=== PATIENT | female | born 1990 | race Caucasian/White ===

== ENCOUNTER → 2017-11-20 | Outpatient (CLI) | payer OTHER ==
[2017-11-20 12:56] LABS: HEMOGLOBIN A1C 6.3 % (4.5-5.6)
[2017-11-20 13:04] LABS: ALBUMIN 3.6 gm/dl (3.4-5.0); ALT/SGPT 19 U/L (12-78); AST/SGOT 12 U/L (15-37); BLOOD UREA NITROGEN 16 mg/dl (7-18); CALCIUM 8.8 mg/dl (8.5-10.1); CARBON DIOXIDE 28 mmol/L (21-32); CREATININE 0.72 mg/dl (0.60-1.20); GLUCOSE 70 mg/dl (70-99); POTASSIUM 3.9 mmol/L (3.5-5.1); SODIUM 136 mmol/L (136-145)
[2017-11-20 13:17] LABS: ALKALINE PHOSPHATASE 53 U/L (45-117); CHOLESTEROL 170 mg/dl (0-200); LDL CHOLESTEROL CALCULATED 91 mg/dl; TOTAL PROTEIN 7.5 gm/dl (6.4-8.2)
[2017-11-20 13:47] LABS: CREATININE RANDOM URINE 92.3 mg/dl
== END | disposition home or self-care (01) ==
LOC: C.LAB 09:46
PROVIDERS: ATTEND Physician Assistant
DX: E10.9 Type 1 diabetes mellitus without complications (principal)

== ENCOUNTER 2021-08-23 07:30 | Inpatient (IN) ==
[2021-08-23] MEDS ORDERED: OXYTOCIN 30 UNITS/500 ML BAG IV PRN ×2 (07:52)
--- NOTE | 2021-08-23 08:01 | History & Physical Report ---
Date of Service August 23, 2021 Assessment & Plan (1) Encounter for supervision of normal intrauterine in primigravida, antepartum: Plan: 30yo G1 at 39.0 weeks GA. Presents for IOL for Type I DM. 1. Fetus: Cat1 2. Labor: Tejeda/pitocin 3. Vitals WNL 4. Type 1 DM: Has insulin pump and will try to maintain management with pump. Will transition to insulin drip prn. (2) Type 1 diabetes mellitus affecting , antepartum: (3) Type 1 diabetes mellitus: (4) Hypothyroidism: Admission and Anticipated Discharge Date Admission Date: August 23, 2021 History of Present Illness Primary Care Provider: Cayla Perry MD 30yo G1 at 39.0 weeks GA. Presents for IOL for Type I DM. Denies labor symptoms. 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 *Fob negative Type 1 DM DM Protocol *Baby ASA dailly, start 12-28wks, continue until del *Ophthalmology consult - done 11/2020 *Dietary consult - done 01/2021 *Q monthly urine cultures * Echo 22-24wks (04/30/21 [facility]) - WNL KBB *Twice weekly NST's @32 or 34wks *Serial Growth US starting 28wks *Baseline 24hr Urine and Q trimester *EKG (Cardio [id number]) OB Labs: Blood Type O Negative 01/24/21 Antibody Screen NEGATIVE 06/13/21 Hemoglobin 11.1 g/dL (12.0-16.0) L 06/13/21 Hematocrit 34.6 % (37-47) L 06/13/21 Mean Corpuscular Volume 88.5 fL (80-100) 01/24/21 Platelet Count 168 K/uL (130-400) 01/24/21 Rubella IgG Antibody Immune (Immune) 01/24/21 Rapid Plasma Reagin Nonreactive (Nonreactive) 01/24/21 Hepatitis B Surface Antigen Neg (Neg) 01/24/21 HIV (1&2) Ab and P24 Ag, 4th Gener Neg (Neg) 01/24/21 OB Optional Labs: Chlamydia trachomatis RNA NOT DETECTED (NOT DETECTED) 01/24/21 Neisseria gonorrhoeae RNA NOT DETECTED (NOT DETECTED) 01/24/21 Thyroid Stimulating Hormone (TSH) 1.280 uIu/ml (0.300-4.500) Allergies Allergy/AdvReac Type Severity Reaction Status Date / Time No Known Allergies Allergy Unverified 08/23/21 09:44 Home Medications Medication Instructions Recorded Confirmed Type blood sugar diagnostic (Contour #10 ea 03/15/19 08/22/21 History Next Test Strips) glucagon HCl 1 mg/mL solution for 1 mg IM UD PRN #2 ea 03/19/20 08/23/21 Rx injection insulin glargine 100 unit/mL 30 unit SUBCUT DAILY #10 ml 03/19/20 08/23/21 Rx subcutaneous solution (Lantus U-100 Insulin) aspirin 81 mg tablet,delayed 81 mg PO DAILY 03/13/21 08/23/21 History release (Adult Low Dose Aspirin) docosahexaenoic acid [ DHA] PO DAILY 03/13/21 08/22/21 History insulin lispro 100 unit/mL 80 unit CONTINUOUS SUBCUTANEOUS 05/21/21 08/23/21 Rx subcutaneous solution (Humalog INFUSION DAILY #20 ml U-100 Insulin) levothyroxine 112 mcg tablet 112 mcg PO .COMPLEX #108 tab 06/14/21 08/23/21 Rx Patient History Medical History History of chicken pox Hypothyroidism Type 1 diabetes mellitus Surgical History S/P wisdom tooth extraction Family History Mother Hypertension Hyperlipidemia Type 2 diabetes mellitus Sleep apnea Obesity Hypothyroidism Father Hypertension Hyperlipidemia GERD (gastroesophageal reflux disease) Grandmother (Maternal) Hypothyroidism Heart failure Sister Type 1 diabetes mellitus Samreen's thyroiditis Grandfather (Maternal) Myocardial infarction Cardiac disorder Grandmother (Paternal) Diabetes Cardiac disorder Grandfather (Paternal) Cardiac disorder Myocardial infarction Sister Hypothyroidism Brother Hypertension Denies family history of Ovarian cancer Prostate cancer Breast cancer Colorectal cancer Social History (Updated 03/25/21 @ 07:59 by Gisel Wolff LPN) Smoking Status: Never smoker Second Hand Exposure: No; Hx Alcohol Use: No Hx Substance Use: No Preferred Language: Iranian Communication Ability: Effective Visual Impairment: No Limitations Hearing Ability: Hard of Hearing [employer] Required: No Beliefs That Will Affect Care: None marital status: marital status details: Waldo Weller (30) [phone] Current Living Situation: Spouse Current Living Situation Comment: lives with spouse and 2 cats. Spouse changing litter current occupational status: employed current occupation: pharamacist Other Information That Helps Us Care for You: No Feels Safe at Home: Yes Safety Concerns: Feels Safe At This Time Childhood Exposure to Second-Hand Smoke: No caffeine: Yes during the past year weight has: remained stable Dental Care, Regularly: Yes Physical Activity Frequency: Does not Exercise Seatbelt Use: always Sunscreen Use: Yes Assistive Devices: None Physical Exam Genitourinary: Manual OB Exam: + cervical dilation 1 cm, + cervical effacement (Thick) and + station high OB Exam Monitor Tracing: + external FHT monitor used, + external uterine monitor used, + category I and + normal FHT variability; no early decelerations present, no late decelerations present and no variable decelerations Results & Data ([facility]) Vital Signs (Past 12 Hours) Vital Signs Pulse BP 08/23/21 07:37 83 133/79 Coding Level of Care Code None Diagnoses Encounter for supervision of normal intrauterine in primigravida, antepartum Z34.00 Type 1 diabetes mellitus affecting , antepartum O24.019 Type 1 diabetes mellitus E10.9 Hypothyroidism E03.9
[2021-08-23 09:07] LABS: Hemoglobin 9.5 g/dL (12.0-16.0); Mean Corpuscular Hemoglobin 28.7 pg (25-34); Mean Corpuscular Hgb Conc 31.7 g/dL (32-36); Mean Corpuscular Volume 90.6 fL (80-100); Platelet Count 87 K/uL (130-400); Platelet Estimate Decreased (Normal); RDW Coefficient of Variation 14.2 % (11.5-14.5); RDW Standard Deviation 46.9 fL (36.4-46.3); Red Blood Count 3.31 M/uL (4.2-5.4); White Blood Count 8.07 K/uL (4.8-10.8)
[2021-08-23] MEDS: LACTATED RINGER'S 1,000 ML IV PRN ×2 (13:38→19:25)
[2021-08-23] MEDS ORDERED: SODIUM CHLORIDE 0.9% INJ 10 ML VIAL ONE (19:20)
[2021-08-23] MEDS ORDERED: ePHEDrine sulfate 50 MG/ML AMP ONE (19:20)
[2021-08-23] MEDS ORDERED: fentaNYL citrate 100 MCG/2 ML VIAL ONE (19:20)
[2021-08-23] MEDS ORDERED: BUPIVACAINE 0.25% 30 ML VIAL ONE (19:20)
[2021-08-23] MEDS ORDERED: fentaNYL 2MCG/ML ROPIVACAINE 1.25MG/ML 100 ML BAG EPI ONE (19:21)
[2021-08-23] MEDS: CALCIUM CARBONATE 500 MG CHEWABLE TAB PO PRN ×2 (19:23→21:45)
[2021-08-23] MEDS ORDERED: ePHEDrine sulfate 50 MG/ML AMP IV PRN (19:56)
[2021-08-23] MEDS ORDERED: fentaNYL 2MCG/ML ROPIVACAINE 1.25MG/ML 100 ML BAG EPI PRN (19:56)
[2021-08-23] MEDS ORDERED: NALBUPHINE HCL INJ 10 MG/ML AMP IV PRN (19:56)
[2021-08-23] MEDS ORDERED: diphenhydrAMINE 50 MG/ML VIAL IV PRN (19:56)
[2021-08-23] MEDS ORDERED: NALOXONE HCL 0.4 MG/1 ML VIAL/CARP IV PRN (19:56)
[2021-08-23] MEDS ORDERED: ONDANSETRON INJ 2 MG/ML 2 ML VIAL IV PRN (19:56)
[2021-08-23] MEDS ORDERED: NALOXONE HCL 1 MG in SODIUM CHLORIDE 0.9% 1000ML 1,000 ML IV PRN (19:56)
--- NOTE | 2021-08-23 20:03 | Anesthesiology Consultation ---
Date of Service August 23, 2021 Assessment & Plan Chart Review Chart Review: Acceptable Risk for Surgery and Patient NOT seen in Pre Admission Testing Consults Requested none ASA ASA3 Proposed Anesthesia Anesthesia Type: Labor Epidural Risk / Benefits Reviewed With: PT / POA / Parent / Guardian, Accepts Plan and Informed Consent Obtained History Height/Weight Height: 5 ft 7 in Weight: 95.254 kg Allergies Allergy/AdvReac Type Severity Reaction Status Date / Time No Known Allergies Allergy Unverified 08/23/21 09:44 Medications Home Medications Medication Instructions Recorded Confirmed Last Taken blood sugar diagnostic (Contour #10 ea 03/15/19 08/22/21 Unknown Next Test Strips) glucagon HCl 1 mg/mL solution for 1 mg IM UD PRN #2 ea 03/19/20 08/23/21 Unknown injection insulin glargine 100 unit/mL 30 unit SUBCUT DAILY #10 ml 03/19/20 08/23/21 Unknown subcutaneous solution (Lantus U-100 Insulin) aspirin 81 mg tablet,delayed 81 mg PO DAILY 03/13/21 08/23/21 Unknown release (Adult Low Dose Aspirin) docosahexaenoic acid [ DHA] PO DAILY 03/13/21 08/22/21 Unknown insulin lispro 100 unit/mL 80 unit CONTINUOUS SUBCUTANEOUS 05/21/21 08/23/21 Unknown subcutaneous solution (Humalog INFUSION DAILY #20 ml U-100 Insulin) levothyroxine 112 mcg tablet 112 mcg PO .COMPLEX #108 tab 06/14/21 08/23/21 08/23/21 07:00 Active Medications Generic Name Dose Route Start Last Admin Trade Name Freq PRN Reason Stop Dose Admin Calcium Carbonate 500 mg 08/23/21 19:11 08/23/21 19:23 Calcium Carbonate 500 Mg Chewable Tab PO 09/22/21 19:10 500 mg Q4 PRN Administration Indigestion Oxytocin 30 units in 500 mls @ 10 mls/hr 08/23/21 07:52 08/23/21 19:00 Pitocin IV 08/25/21 07:51 0.6 units/hr .Q24H PRN 10 mls/hr Labor Induction/Augmentation Titration Protocol 0.6 UNITS/HR Lactated Ringer's 1,000 mls @ 125 mls/hr 08/23/21 07:52 08/23/21 19:25 Lr IV 08/25/21 07:51 125 mls/hr .Q8H PRN Administration L&D Protocol Protocol NPO Date Last Intake of Fluids: 08/23/21 Time Last Intake of Fluids: 18:00 Date Last Intake of Solids: 08/23/21 Time Last Intake of Solids: 18:00 Past Medical History Medical History History of chicken pox Hypothyroidism Type 1 diabetes mellitus Exercise / Class Metabolic Activity II 4-5 Yardwork/Stairs/Walk up hill Past Family History Family History Mother Hypertension Hyperlipidemia Type 2 diabetes mellitus Sleep apnea Obesity Hypothyroidism Father Hypertension Hyperlipidemia GERD (gastroesophageal reflux disease) Grandmother (Maternal) Hypothyroidism Heart failure Sister Type 1 diabetes mellitus Samreen's thyroiditis Grandfather (Maternal) Myocardial infarction Cardiac disorder Grandmother (Paternal) Diabetes Cardiac disorder Grandfather (Paternal) Cardiac disorder Myocardial infarction Sister Hypothyroidism Brother Hypertension Denies family history of Ovarian cancer Prostate cancer Breast cancer Colorectal cancer Past Surgical History Surgical History S/P wisdom tooth extraction Past Anesthesia History No Hx of Anesthesia Complications and No Family Hx of Anesthesia Complications History of PONV No Hx of PONV and No Hx of Motion Sickness Social History Smoking Status: Never smoker Hx Alcohol Use: No Hx Substance Use: No substance use type: does not use Review of Systems no chest pain or sob Physical Exam Vital Signs Last Vital Signs Temp 36.9 C 08/23/21 19:00 Pulse 77 08/23/21 19:55 Resp 18 08/23/21 19:00 BP 142/84 H 08/23/21 19:02 Pulse Ox 98 08/23/21 19:55 ENMT Mouth: no TMJ abnormality Thyromental Distance: > or= 3.5 Finger Breadths Mallampati Class: II Neck normal visual inspection Respiratory normal respiratory effort Auscultation: lungs clear to auscultation bilaterally Cardiovascular Rate/Rhythm: regular rate and regular rhythm Musculoskeletal Spine: normal cervical ROM Neurologic moves all extremities Psychiatric Orientation: alert and oriented x 3 Testing Laboratory Results 08/23/21 08:26 08/23/21 08/23/21 08/23/21 18:59 16:58 15:11 POC Glucose 103 H 80 85 08/23/21 08/23/21 08/23/21 13:01 11:01 08:50 POC Glucose 68 L* 63 L* 116 H
[2021-08-23] MEDS ORDERED: FAMOTIDINE 20 MG in SYRINGE 3 ML IV ONE (23:45)
--- NOTE | 2021-08-24 01:20 | Labor Progress Brief Note ---
Date of Service August 24, 2021 Patient's induction was delayed today due to busyness and staff issues. Pitocin has been running the patient has received an epidural she is doing well at this stage she is now 4 cm baby's position is fairly high initially attempted to perform artificial rupture of membranes however it was high enough that I decided this was unwise at this moment we will wait to the head descends further Assessment & Plan Admission and Anticipated Discharge Date Admission Date: August 23, 2021 Results & Data ([facility]) Vital Signs (Past 12 Hours) Vital Signs Temp Pulse Resp BP Pulse Ox 08/24/21 01:15 87 97 08/24/21 01:10 104 H 98 08/24/21 01:05 82 97 08/24/21 01:00 79 98 08/24/21 00:58 84 152/81 H 08/24/21 00:55 89 96 08/24/21 00:50 81 97 08/24/21 00:45 81 97 08/24/21 00:43 78 137/73 08/24/21 00:40 78 96 08/24/21 00:35 83 97 08/24/21 00:30 80 97 08/24/21 00:28 78 141/71 H 08/24/21 00:25 75 97 08/24/21 00:20 77 97 08/24/21 00:15 84 97 08/24/21 00:13 83 142/77 H 08/24/21 00:10 82 97 08/24/21 00:05 79 97 08/24/21 00:00 85 98 08/23/21 23:57 76 142/74 H 08/23/21 23:55 81 97 08/23/21 23:50 86 97 08/23/21 23:45 80 97 08/23/21 23:44 80 139/81 08/23/21 23:40 81 98 08/23/21 23:35 83 98 08/23/21 23:30 90 98 08/23/21 23:27 83 144/80 H 08/23/21 23:25 85 98 08/23/21 23:20 83 98 08/23/21 23:15 86 98 08/23/21 23:12 83 133/75 08/23/21 23:10 85 97 08/23/21 23:05 98.6 F 84 18 98 08/23/21 23:00 89 97 08/23/21 22:57 80 149/72 H 08/23/21 22:55 91 H 98 08/23/21 22:50 98 H 98 08/23/21 22:45 96 H 97 08/23/21 22:42 93 H 154/94 H 08/23/21 22:40 104 H 97 08/23/21 22:35 84 97 08/23/21 22:30 91 H 95 08/23/21 22:28 80 140/66 08/23/21 22:25 78 95 08/23/21 22:20 69 95 08/23/21 22:15 71 96 08/23/21 22:13 85 129/72 08/23/21 22:10 77 96 08/23/21 22:05 71 96 08/23/21 22:00 74 96 08/23/21 21:57 83 135/72 08/23/21 21:55 81 95 08/23/21 21:50 81 97 08/23/21 21:45 85 97 08/23/21 21:43 98.6 F 79 18 137/69 08/23/21 21:40 85 97 08/23/21 21:35 118 H 97 08/23/21 21:30 99 H 98 08/23/21 21:28 84 137/77 08/23/21 21:25 93 H 97 08/23/21 21:20 81 96 08/23/21 21:17 95 H 94 08/23/21 21:15 80 94 08/23/21 21:12 74 16 131/75 08/23/21 21:10 77 96 08/23/21 21:05 81 97 22 21:00 72 96 22 20:57 69 133/72 22 20:55 80 96 2122 20:50 77 97 2122 20:45 77 96 2122 20:42 74 18 124/68 22 20:40 83 97 2122 20:35 82 97 22 20:30 88 97 2122 20:25 85 98 22 20:23 80 133/77 22 20:20 79 98 22 20:19 85 140/74 08/23/21 20:15 96 H 98 08/23/21 20:14 74 164/94 H 08/23/21 20:10 86 98 08/23/21 20:05 101 H 100 08/23/21 20:02 78 138/84 08/23/21 20:00 88 98 08/23/21 19:55 77 98 08/23/21 19:50 85 98 08/23/21 19:45 77 98 08/23/21 19:40 72 98 08/23/21 19:02 81 142/84 H 08/23/21 19:00 98.4 F 18 08/23/21 18:07 81 20 134/82 08/23/21 16:56 97.9 F 83 20 133/83 08/23/21 15:12 82 20 130/76 08/23/21 14:04 76 20 134/84 Coding Level of Care Code None
[2021-08-24] MEDS: LACTATED RINGER'S 1,000 ML IV PRN ×2 (02:26→09:51)
[2021-08-24] MEDS: CALCIUM CARBONATE 500 MG CHEWABLE TAB PO PRN (07:00)
--- NOTE | 2021-08-24 07:33 | Labor Progress Brief Note ---
Date of Service August 24, 2021 Patient is now 4 to 5 cm I was able to rupture membranes at this time for clear fluid is the baby's head was somewhat lower although the station is still high reviewed the plan with the patient that we will continue to persist with induction as she has not really had a full trial of labor yet heart rate is category 1 Assessment & Plan Admission and Anticipated Discharge Date Admission Date: August 23, 2021 Results & Data ([facility]) Vital Signs (Past 12 Hours) Vital Signs Temp Pulse Resp BP Pulse Ox 08/24/21 07:30 84 98 08/24/21 07:25 111 H 98 08/24/21 07:20 85 97 08/24/21 07:15 99 H 99 08/24/21 07:10 89 98 08/24/21 07:05 85 98 08/24/21 07:00 90 96 08/24/21 06:59 91 H 140/93 08/24/21 06:55 84 97 08/24/21 06:50 86 97 08/24/21 06:45 87 97 08/24/21 06:40 83 97 08/24/21 06:35 98.6 F 79 18 97 08/24/21 06:30 81 98 08/24/21 06:29 81 136/73 08/24/21 06:25 77 98 08/24/21 06:20 82 98 08/24/21 06:15 90 98 08/24/21 06:10 93 H 98 08/24/21 06:05 98.6 F 90 16 98 08/24/21 06:00 91 H 97 08/24/21 05:59 88 125/66 08/24/21 05:55 84 96 08/24/21 05:50 82 96 08/24/21 05:45 80 96 08/24/21 05:40 76 96 08/24/21 05:35 80 96 08/24/21 05:30 79 97 08/24/21 05:29 83 141/71 H 08/24/21 05:25 81 97 08/24/21 05:20 84 98 08/24/21 05:15 86 97 08/24/21 05:10 83 97 08/24/21 05:05 83 97 08/24/21 05:00 87 130/70 98 08/24/21 04:55 84 97 08/24/21 04:50 93 H 98 08/24/21 04:45 74 96 08/24/21 04:40 77 97 08/24/21 04:35 72 96 08/24/21 04:30 73 140/76 96 08/24/21 04:25 83 97 08/24/21 04:20 82 97 08/24/21 04:15 98.6 F 93 H 18 98 08/24/21 04:10 84 96 08/24/21 04:05 82 95 08/24/21 04:00 86 130/68 95 08/24/21 03:56 77 94 08/24/21 03:55 77 95 08/24/21 03:50 78 94 08/24/21 03:48 81 94 08/24/21 03:45 74 94 08/24/21 03:41 75 94 08/24/21 03:40 76 94 08/24/21 03:35 75 94 08/24/21 03:30 78 94 08/24/21 03:29 85 123/68 08/24/21 03:25 79 94 08/24/21 03:24 76 94 08/24/21 03:20 78 95 08/24/21 03:19 80 94 08/24/21 03:15 80 95 08/24/21 03:10 79 95 08/24/21 03:05 76 95 08/24/21 03:01 81 126/65 08/24/21 03:00 82 96 08/24/21 02:55 71 96 08/24/21 02:50 91 H 97 08/24/21 02:45 77 95 08/24/21 02:40 79 95 08/24/21 02:35 76 95 08/24/21 02:31 76 132/68 08/24/21 02:30 79 95 08/24/21 02:25 82 97 08/24/21 02:20 77 95 08/24/21 02:17 75 94 08/24/21 02:15 75 95 08/24/21 02:12 73 94 08/24/21 02:10 76 95 08/24/21 02:05 72 95 08/24/21 02:00 73 95 08/24/21 01:59 79 135/70 08/24/21 01:55 73 95 08/24/21 01:50 74 95 08/24/21 01:45 76 96 08/24/21 01:40 78 95 08/24/21 01:35 81 96 08/24/21 01:30 77 137/77 97 08/24/21 01:25 84 97 08/24/21 01:20 69 97 08/24/21 01:15 87 97 08/24/21 01:10 104 H 98 08/24/21 01:05 82 97 08/24/21 01:00 79 98 08/24/21 00:58 84 152/81 H 08/24/21 00:55 89 96 08/24/21 00:50 81 97 08/24/21 00:45 81 97 08/24/21 00:43 78 137/73 08/24/21 00:40 78 96 08/24/21 00:35 83 97 08/24/21 00:30 80 97 08/24/21 00:28 78 141/71 H 08/24/21 00:25 75 97 08/24/21 00:20 77 97 08/24/21 00:15 84 97 08/24/21 00:13 83 142/77 H 08/24/21 00:10 82 97 08/24/21 00:05 79 97 08/24/21 00:00 85 98 08/23/21 23:57 76 142/74 H 08/23/21 23:55 81 97 22 23:50 86 97 22 23:45 80 97 22 23:44 80 139/81 22 23:40 81 98 22 23:35 83 98 22 23:30 90 98 2122 23:27 83 144/80 H 22 23:25 85 98 2122 23:20 83 98 2122 23:15 86 98 2122 23:12 83 133/75 22 23:10 85 97 22 23:05 98.6 F 84 18 98 22 23:00 89 97 22 22:57 80 149/72 H 22 22:55 91 H 98 22 22:50 98 H 98 22 22:45 96 H 97 22 22:42 93 H 154/94 H 22 22:40 104 H 97 08/23/21 22:35 84 97 08/23/21 22:30 91 H 95 08/23/21 22:28 80 140/66 08/23/21 22:25 78 95 08/23/21 22:20 69 95 08/23/21 22:15 71 96 08/23/21 22:13 85 129/72 08/23/21 22:10 77 96 08/23/21 22:05 71 96 08/23/21 22:00 74 96 08/23/21 21:57 83 135/72 08/23/21 21:55 81 95 08/23/21 21:50 81 97 08/23/21 21:45 85 97 08/23/21 21:43 98.6 F 79 18 137/69 08/23/21 21:40 85 97 08/23/21 21:35 118 H 97 08/23/21 21:30 99 H 98 08/23/21 21:28 84 137/77 08/23/21 21:25 93 H 97 08/23/21 21:20 81 96 08/23/21 21:17 95 H 94 08/23/21 21:15 80 94 08/23/21 21:12 74 16 131/75 08/23/21 21:10 77 96 08/23/21 21:05 81 97 08/23/21 21:00 72 96 08/23/21 20:57 69 133/72 08/23/21 20:55 80 96 08/23/21 20:50 77 97 08/23/21 20:45 77 96 08/23/21 20:42 74 18 124/68 22 20:40 83 97 08/23/21 20:35 82 97 2122 20:30 88 97 08/23/21 20:25 85 98 08/23/21 20:23 80 133/77 08/23/21 20:20 79 98 08/23/21 20:19 85 140/74 08/23/21 20:15 96 H 98 08/23/21 20:14 74 164/94 H 08/23/21 20:10 86 98 08/23/21 20:05 101 H 100 08/23/21 20:02 78 138/84 08/23/21 20:00 88 98 08/23/21 19:55 77 98 08/23/21 19:50 85 98 08/23/21 19:45 77 98 08/23/21 19:40 72 98 Coding Level of Care Code None
[2021-08-24] MEDS ORDERED: Nursing to Pharmacy Communication SCH ×2 (10:00→21:15)
[2021-08-24] MEDS ORDERED: miSOPROStoL 200 MCG TAB ONE (11:35)
[2021-08-24] MEDS ORDERED: METHYLERGONOVINE MALEATE 0.2 MG/ML AMP ONE (11:36)
[2021-08-24] MEDS ORDERED: LIDOCAINE 1% LOCAL 20 ML VIAL ONE (11:47)
[2021-08-24] MEDS ORDERED: FAMOTIDINE 20 MG in SYRINGE 3 ML IV SCH (12:00)
[2021-08-24] MEDS ORDERED: LIDOCAINE 2% MPF LOCAL 5 ML VIAL INFIL ONE (13:13)
[2021-08-24] MEDS ORDERED: fentaNYL citrate 100 MCG/2 ML VIAL ONE (13:34)
--- NOTE | 2021-08-24 13:37 | Anesthesiology Consultation ---
Date of Service August 24, 2021 Assessment & Plan Chart Review Chart Review: Acceptable Risk for Surgery Consults Requested none History Surgery Operation Date: 08/24/21 13:30 Proposed Procedures p Labor Delivery Repair Vaginal Laceration - Jatin Loving MD Height/Weight Height: 5 ft 7 in Weight: 95.254 kg Allergies Allergy/AdvReac Type Severity Reaction Status Date / Time No Known Allergies Allergy Unverified 08/23/21 09:44 Medications Home Medications Medication Instructions Recorded Confirmed Last Taken blood sugar diagnostic (Contour #10 ea 03/15/19 08/22/21 Unknown Next Test Strips) glucagon HCl 1 mg/mL solution for 1 mg IM UD PRN #2 ea 03/19/20 08/23/21 Unknown injection insulin glargine 100 unit/mL 30 unit SUBCUT DAILY #10 ml 03/19/20 08/23/21 Unknown subcutaneous solution (Lantus U-100 Insulin) aspirin 81 mg tablet,delayed 81 mg PO DAILY 03/13/21 08/23/21 Unknown release (Adult Low Dose Aspirin) docosahexaenoic acid [ DHA] PO DAILY 03/13/21 08/22/21 Unknown insulin lispro 100 unit/mL 80 unit CONTINUOUS SUBCUTANEOUS 05/21/21 08/23/21 Unknown subcutaneous solution (Humalog INFUSION DAILY #20 ml U-100 Insulin) levothyroxine 112 mcg tablet 112 mcg PO .COMPLEX #108 tab 06/14/21 08/23/21 08/23/21 07:00 Active Medications Generic Name Dose Route Start Last Admin Trade Name Freq PRN Reason Stop Dose Admin Calcium Carbonate 500 mg 08/23/21 19:11 08/24/21 07:00 Calcium Carbonate 500 Mg Chewable Tab PO 09/22/21 19:10 500 mg Q4 PRN Administration Indigestion Oxytocin 30 units in 500 mls @ 333.333 mls/hr 08/23/21 07:52 08/24/21 11:52 Pitocin IV 09/22/21 07:51 20 units/hr .Q1H30M PRN 333.3 mls/hr Bleeding Control Administration Protocol 20 UNITS/HR Oxytocin 30 units in 500 mls @ 999 mls/hr 08/23/21 07:52 08/24/21 11:40 Pitocin IV 08/25/21 07:51 59.94 units/hr .Q31M PRN 999 mls/hr Labor Induction/Augmentation Titration Protocol 59.94 UNITS/HR Lactated Ringer's 1,000 mls @ 125 mls/hr 08/23/21 07:52 08/24/21 11:50 Lr IV 08/25/21 07:51 0 mls/hr .Q8H PRN Infusion L&D Protocol Protocol Ondansetron HCl 4 mg 08/23/21 19:56 08/24/21 08:36 Ondansetron Inj 2 Mg/Ml 2 Ml Vial IV 08/24/21 19:55 4 mg Q6H PRN Administration Nausea And Vomiting Ropivacaine 100 ml 08/23/21 19:56 08/24/21 06:02 Fentanyl 2mcg/Ml Ropivacaine 1.25mg/Ml 100 Ml Bag EPI 08/24/21 19:55 100 ml PRN PRN Administration Pain R/T Labor Protocol NPO Date Last Intake of Fluids: 08/24/21 Time Last Intake of Fluids: 11:20 Date Last Intake of Solids: 08/23/21 Time Last Intake of Solids: 06:00 Past Medical History Medical History History of chicken pox Hypothyroidism Type 1 diabetes mellitus Past Family History Family History Mother Hypertension Hyperlipidemia Type 2 diabetes mellitus Sleep apnea Obesity Hypothyroidism Father Hypertension Hyperlipidemia GERD (gastroesophageal reflux disease) Grandmother (Maternal) Hypothyroidism Heart failure Sister Type 1 diabetes mellitus Samreen's thyroiditis Grandfather (Maternal) Myocardial infarction Cardiac disorder Grandmother (Paternal) Diabetes Cardiac disorder Grandfather (Paternal) Cardiac disorder Myocardial infarction Sister Hypothyroidism Brother Hypertension Denies family history of Ovarian cancer Prostate cancer Breast cancer Colorectal cancer Past Surgical History Surgical History S/P wisdom tooth extraction Social History Smoking Status: Never smoker Hx Alcohol Use: No Hx Substance Use: No substance use type: does not use Physical Exam Vital Signs Last Vital Signs Temp 36.8 C 08/24/21 09:34 Pulse 115 H 08/24/21 13:10 Resp 20 08/24/21 09:34 BP 144/85 H 08/24/21 12:57 Pulse Ox 98 08/24/21 13:10 Testing Laboratory Results 08/23/21 08:26 08/24/21 08/24/21 08/24/21 13:07 10:05 08:04 POC Glucose 94 89 86 08/24/21 08/24/21 06:07 04:16 POC Glucose 103 H 139 H
--- NOTE | 2021-08-24 15:01 | Anesthesiology Progress Note ---
Date of Service August 24, 2021 Anesthesia Post Procedure Vital Signs Vital Signs: Temp Pulse Resp BP Pulse Ox 08/24/21 14:47 112 H 152/76 H 08/24/21 14:45 20 08/24/21 14:42 111 H 152/73 H 08/24/21 14:30 20 08/24/21 14:17 110 H 142/86 H 08/24/21 13:10 115 H 98 08/24/21 13:05 105 H 98 08/24/21 13:00 99 H 97 08/24/21 12:57 109 H 144/85 H 08/24/21 12:55 107 H 97 08/24/21 12:46 103 H 142/76 H 08/24/21 12:42 106 H 141/77 H 08/24/21 12:27 112 H 138/76 08/24/21 11:59 107 H 137/94 08/24/21 11:55 110 H 98 08/24/21 11:50 108 H 98 08/24/21 11:45 118 H 98 08/24/21 11:40 118 H 100 08/24/21 11:35 115 H 98 08/24/21 11:30 151 H 97 08/24/21 11:25 162 H 97 08/24/21 11:20 155 H 97 08/24/21 11:15 114 H 97 08/24/21 11:10 120 H 97 08/24/21 11:05 129 H 96 08/24/21 11:00 141 H 161/82 H 96 08/24/21 10:55 142 H 97 08/24/21 10:50 124 H 97 08/24/21 10:45 110 H 95 08/24/21 10:40 112 H 96 08/24/21 10:35 111 H 96 08/24/21 10:32 111 H 94 08/24/21 10:30 115 H 98 08/24/21 10:29 110 H 140/69 08/24/21 10:25 106 H 95 08/24/21 10:20 111 H 97 08/24/21 10:15 117 H 98 08/24/21 10:10 112 H 97 08/24/21 10:05 111 H 96 08/24/21 10:01 107 H 141/66 H 08/24/21 10:00 106 H 96 08/24/21 09:55 115 H 98 08/24/21 09:50 104 H 96 08/24/21 09:45 105 H 96 08/24/21 09:40 101 H 97 08/24/21 09:35 105 H 97 08/24/21 09:34 36.8 C 20 08/24/21 09:30 104 H 150/92 H 97 08/24/21 09:25 98 H 96 08/24/21 09:20 104 H 98 08/24/21 09:15 98 H 97 08/24/21 09:10 110 H 98 08/24/21 09:05 104 H 97 08/24/21 09:00 104 H 136/72 97 08/24/21 08:55 99 H 97 08/24/21 08:50 90 96 08/24/21 08:45 100 H 96 08/24/21 08:40 112 H 97 08/24/21 08:35 116 H 97 08/24/21 08:30 104 H 98 08/24/21 08:29 107 H 135/72 08/24/21 08:25 101 H 97 08/24/21 08:20 98 H 97 08/24/21 08:15 97 H 97 08/24/21 08:10 105 H 97 08/24/21 08:05 98 H 98 08/24/21 08:00 93 H 98 08/24/21 07:59 91 H 20 131/77 08/24/21 07:55 94 H 98 08/24/21 07:50 93 H 97 08/24/21 07:45 113 H 97 08/24/21 07:40 91 H 97 08/24/21 07:35 93 H 97 08/24/21 07:30 84 98 08/24/21 07:25 111 H 98 08/24/21 07:20 85 97 08/24/21 07:15 99 H 99 08/24/21 07:10 89 98 08/24/21 07:05 85 98 08/24/21 07:00 90 96 08/24/21 06:59 36.6 C 91 H 20 140/93 08/24/21 06:55 84 97 08/24/21 06:50 86 97 08/24/21 06:45 87 97 08/24/21 06:40 83 97 08/24/21 06:35 37.0 C 79 18 97 08/24/21 06:30 81 98 08/24/21 06:29 81 136/73 08/24/21 06:25 77 98 08/24/21 06:20 82 98 08/24/21 06:15 90 98 08/24/21 06:10 93 H 98 08/24/21 06:05 37.0 C 90 16 98 08/24/21 06:00 91 H 97 08/24/21 05:59 88 125/66 08/24/21 05:55 84 96 08/24/21 05:50 82 96 08/24/21 05:45 80 96 08/24/21 05:40 76 96 08/24/21 05:35 80 96 08/24/21 05:30 79 97 08/24/21 05:29 83 141/71 H 08/24/21 05:25 81 97 08/24/21 05:20 84 98 08/24/21 05:15 86 97 08/24/21 05:10 83 97 08/24/21 05:05 83 97 08/24/21 05:00 87 130/70 98 08/24/21 04:55 84 97 08/24/21 04:50 93 H 98 08/24/21 04:45 74 96 08/24/21 04:40 77 97 08/24/21 04:35 72 96 08/24/21 04:30 73 140/76 96 08/24/21 04:25 83 97 08/24/21 04:20 82 97 08/24/21 04:15 37.0 C 93 H 18 98 08/24/21 04:10 84 96 08/24/21 04:05 82 95 08/24/21 04:00 86 130/68 95 08/24/21 03:56 77 94 08/24/21 03:55 77 95 08/24/21 03:50 78 94 08/24/21 03:48 81 94 08/24/21 03:45 74 94 08/24/21 03:41 75 94 08/24/21 03:40 76 94 08/24/21 03:35 75 94 08/24/21 03:30 78 94 08/24/21 03:29 85 123/68 08/24/21 03:25 79 94 08/24/21 03:24 76 94 08/24/21 03:20 78 95 08/24/21 03:19 80 94 08/24/21 03:15 80 95 08/24/21 03:10 79 95 08/24/21 03:05 76 95 08/24/21 03:01 81 126/65 08/24/21 03:00 82 96 08/24/21 02:55 71 96 08/24/21 02:50 91 H 97 08/24/21 02:45 77 95 08/24/21 02:40 79 95 08/24/21 02:35 76 95 08/24/21 02:31 76 132/68 08/24/21 02:30 79 95 08/24/21 02:25 82 97 08/24/21 02:20 77 95 08/24/21 02:17 75 94 08/24/21 02:15 75 95 08/24/21 02:12 73 94 08/24/21 02:10 76 95 08/24/21 02:05 72 95 08/24/21 02:00 73 95 08/24/21 01:59 79 135/70 08/24/21 01:55 73 95 08/24/21 01:50 74 95 08/24/21 01:45 76 96 08/24/21 01:40 78 95 08/24/21 01:35 81 96 08/24/21 01:30 77 137/77 97 08/24/21 01:25 84 97 08/24/21 01:20 69 97 08/24/21 01:15 87 97 08/24/21 01:10 104 H 98 08/24/21 01:05 82 97 08/24/21 01:00 79 98 08/24/21 00:58 84 152/81 H 08/24/21 00:55 89 96 08/24/21 00:50 81 97 22 00:45 81 97 08/24/21 00:43 78 137/73 08/24/21 00:40 78 96 08/24/21 00:35 83 97 08/24/21 00:30 80 97 08/24/21 00:28 78 141/71 H 08/24/21 00:25 75 97 08/24/21 00:20 77 97 08/24/21 00:15 84 97 22 00:13 83 142/77 H 01/22/22 00:10 82 97 22 00:05 79 97 22 00:00 85 98 08/23/21 23:57 76 142/74 H 22 23:55 81 97 22 23:50 86 97 22 23:45 80 97 22 23:44 80 139/81 2122 23:40 81 98 22 23:35 83 98 08/23/21 23:30 90 98 21 23:27 83 144/80 H 08/23/21 23:25 85 98 08/23/21 23:20 83 98 08/23/21 23:15 86 98 08/23/21 23:12 83 133/75 08/23/21 23:10 85 97 08/23/21 23:05 37.0 C 84 18 98 08/23/21 23:00 89 97 08/23/21 22:57 80 149/72 H 08/23/21 22:55 91 H 98 08/23/21 22:50 98 H 98 08/23/21 22:45 96 H 97 08/23/21 22:42 93 H 154/94 H 08/23/21 22:40 104 H 97 08/23/21 22:35 84 97 08/23/21 22:30 91 H 95 08/23/21 22:28 80 140/66 08/23/21 22:25 78 95 22 22:20 69 95 08/23/21 22:15 71 96 08/23/21 22:13 85 129/72 08/23/21 22:10 77 96 22 22:05 71 96 08/23/21 22:00 74 96 08/23/21 21:57 83 135/72 22 21:55 81 95 2122 21:50 81 97 2122 21:45 85 97 08/23/21 21:43 37.0 C 79 18 137/69 22 21:40 85 97 2122 21:35 118 H 97 2122 21:30 99 H 98 22 21:28 84 137/77 08/23/21 21:25 93 H 97 01/21/22 21:20 81 96 08/23/21 21:17 95 H 94 08/23/21 21:15 80 94 08/23/21 21:12 74 16 131/75 08/23/21 21:10 77 96 08/23/21 21:05 81 97 08/23/21 21:00 72 96 08/23/21 20:57 69 133/72 08/23/21 20:55 80 96 08/23/21 20:50 77 97 08/23/21 20:45 77 96 08/23/21 20:42 74 18 124/68 08/23/21 20:40 83 97 08/23/21 20:35 82 97 08/23/21 20:30 88 97 08/23/21 20:25 85 98 08/23/21 20:23 80 133/77 08/23/21 20:20 79 98 08/23/21 20:19 85 140/74 08/23/21 20:15 96 H 98 08/23/21 20:14 74 164/94 H 08/23/21 20:10 86 98 08/23/21 20:05 101 H 100 08/23/21 20:02 78 138/84 08/23/21 20:00 88 98 08/23/21 19:55 77 98 08/23/21 19:50 85 98 08/23/21 19:45 77 98 08/23/21 19:40 72 98 08/23/21 19:02 81 142/84 H 08/23/21 19:00 36.9 C 18 08/23/21 18:07 81 20 134/82 08/23/21 16:56 36.6 C 83 20 133/83 08/23/21 15:12 82 20 130/76 Pain Intensity Lower Back: Pain Intensity: 4 Transfer of Care Handoff Completed per policy Notes Mental Status: alert / awake / arousable and participated in evaluation Patient Amnestic to Procedure: Yes Nausea / Vomiting: adequately controlled Pain: adequately controlled Airway Patency, RR, SpO2: stable & adequate BP & HR: stable & adequate Hydration State: stable & adequate Anesthetic Complications: no major complications apparent
--- NOTE | 2021-08-24 15:01 | Anesthesia Procedure Note ---
Date of Service August 24, 2021 Anesthesia Post Epidural Note Vital Signs Vital Signs: Temp Pulse Resp BP Pulse Ox 36.8 C 112 H 20 152/76 H 98 08/24/21 09:34 08/24/21 14:47 08/24/21 14:45 08/24/21 14:47 08/24/21 13:10 Pain Intensity Lower Back: Pain Intensity: 4 Notes Mental Status: alert / awake / arousable Nausea / Vomiting: adequately controlled Pain: adequately controlled Airway Patency, RR, SpO2: stable & adequate BP & HR: stable & adequate Hydration State: stable & adequate Neuraxial Anesthesia: was administered and sensory block is resolving Anesthetic Complications: no major complications apparent and Pt Satisfied with anesthetic care Epidural: Removed without complications and With tip intact
[2021-08-24] MEDS ORDERED: SUPERCREAM 0.870% 15 GM JAR EXT PRN (15:08)
[2021-08-24] MEDS ORDERED: OXYTOCIN 30 UNITS/500 ML BAG IV PRN (15:08)
[2021-08-24] MEDS ORDERED: HYDROCORTISONE ACETATE 25 MG SUPP PR PRN (15:08)
[2021-08-24] MEDS ORDERED: bisacodyL 10 MG SUPP PR PRN (15:08)
[2021-08-24] MEDS ORDERED: BENZOCAINE 20% AER SPR 82.5 GM CAN EXT PRN (15:08)
[2021-08-24] MEDS ORDERED: miSOPROStoL 200 MCG TAB PR ONE (15:08)
[2021-08-24] MEDS ORDERED: DIPHTHERIA/TETANUS/PERTUSSIS 0.5 ML SYR/VIAL IM ONE (15:08)
--- NOTE | 2021-08-24 15:10 | Post Operative Brief Note ---
PG Immediate Post Op with CF Date of Surgery August 24, 2021 Pre & Post Diagnosis Operation Date: 08/24/21 13:30 Pre-Op Diagnosis: INDUCTION; SPONTANEOUS VAGINAL DELIVERY; REPAIR OF VAGINAL LACERATION Post-Op Diagnosis: INDUCTION; SPONTANEOUS VAGINAL DELIVERY; REPAIR OF VAGINAL LACERATION I identified the patient and participated in the time-out.: Yes Procedure Operation Date: 08/24/21 13:30 Actual Procedures p Labor Delivery Repair Vaginal Laceration - Jatin Loving MD Surgeon Jatin Loving MD Nursing Clinical Director none Estimated Blood Loss 300 (400 IN LD FOR TOTAL OF 700) Findings Consistent with Post-Op Diagnosis
[2021-08-24] MEDS: IBUPROFEN 600 MG TAB PO PRN ×2 (15:15→20:53)
[2021-08-24] MEDS: DOCUSATE SODIUM 100 MG CAP PO SCH (20:53)
[2021-08-24] MEDS: ACETAMINOPHEN 325 MG TAB PO PRN (21:15)
[2021-08-24] MEDS: FAMOTIDINE 20 MG TAB PO SCH (21:33)
[2021-08-25] MEDS: IBUPROFEN 600 MG TAB PO PRN ×4 (00:37→19:57)
--- NOTE | 2021-08-25 03:00 | Operative Report (OR) ---
PROCEDURE: Normal spontaneous vaginal delivery, OR repair of a second-degree laceration with bilater al sulcal lacerations and generalized friable and macerated vaginal tissue. There was also noted to be bilateral labial laceration repairs performed as well. PREOPERATIVE DIAGNOSES: 1. Single intrauterine at 39 weeks 1 day gestational age. 2. Induction of labor for type 1 diabetes. 3. Hypothyroidism. 4. Repairs with persistent bleeding with inability to visualize well in labor and delivery. POSTOPERATIVE DIAGNOSES: 1. Single intrauterine at 39 weeks 1 day gestational age. 2. Induction of labor for type 1 diabetes. 3. Hypothyroidism. 4. Repairs with persistent bleeding with inability to visualize well in labor and delivery. 4. Status post procedure. ESTIMATED BLOOD LOSS: In total was 700 mL. It was approximately 400 at time of delivery and additio nal 300 noted during the repair process. URINE OUTPUT: 50 mL via straight cath. HOSPITAL COURSE: Ml is a 30-year-old G1, P0, admitted at 39 weeks, 0 days gestational age for jeffrey ction of labor for type 1 diabetes. The patient was noted to be 1 cm dilated and a Tejeda bulb was pl aced for the initial induction process. She was started on oxytocin per regular protocol and progres sed in labor. She received epidural for anesthesia and progressed to complete-complete, +2 station, at which time she felt a strong urge to push and pushed for approximately 30-45 minutes to achieve de livery. After delivery, there was noted to be a persistent vaginal bleeding with inability to identif y the source of the bleeding and it was felt that this was due to a vaginal laceration, which was not able to be visualized due to poor lighting and the patient's difficulty tolerating the procedure. D ecision was made to take her to the operating room for evaluation and repair of the lacerations after the area of bleeding could not be identified. DESCRIPTION OF PROCEDURE: The patient progressed to 10 cm dilated, 100% effaced, positive 2 station, pushed over intact perineum with epidural anesthesia and delivered a viable with weight and Apgars as noted above. Head of the delivered in JAZMINE position, restituted to right transverse . Nuchal cord was noted, which was easily reduced. Body and shoulders quickly followed. wa s delivered to maternal abdomen and was noted to be vigorous soon after delivery. A 1-minute delayed cord clamping was initiated after which the cord was double clamped and cut. remained on ma ternal abdomen. The attention was then turned to delivery of the placenta, which was delivered intac t, 3-vessel cord, gentle cord traction. On inspection of the perineum, vagina, cervix, there was noted to be bilateral labial lacerations and what appeared to be a second-degree. Overall vaginal mucosa was noted to be macerated and very friab le. This was throughout the vaginal tissues and additional tears were difficult to identify. The re pair of the second-degree was performed initially in the room after which bleeding was still noted to be present and evaluation to identify the source of bleeding was performed, but due to poor lighting and overall the patient's discomfort, it was difficult to identify the source of the bleeding and de cision was made to take her to the OR for evaluation of the vaginal bleeding. The bleeding was felt to be from the vaginal laceration. In the OR, the second-degree laceration repair was taken apart to allow better visualization of apical structures. Retractors were used to help visualize the space and there was noted to be an area of a deep sulcal v aginal laceration, which was then identified. There was noted to be just generalized friable macerat ed vaginal tissue and it was difficult to identify the vaginal mucosal ends to reapproximate. Tete r, after a running lock stitch of approximately 4-5 passes, bleeding was noted to be improved. The a preston was watched for several more minutes and bleeding was noted to be minimal. The decision was made to reapproximate the second-degree perineal laceration and a standard crown stitch was performed usi ng 3-0 Vicryl. The bilateral labial lacerations were also repaired and these extended into the secon d-degree perineal laceration. Hemostasis was noted after the completion of the case and the decision was made to end the repair. There was noted to be good cosmesis and bleeding was noted to be minima l and appropriate for post- timeframe. The patient was taken back to recovery area for fur ther evaluation. An 800 mcg of Cytotec were placed per rectum for uterine bleeding control. Both mot her and were stable in the immediate post-delivery period. Job ID: [id number]
[2021-08-25] MEDS: LEVOTHYROXINE SODIUM 112 MCG TABLET PO SCH (06:53)
[2021-08-25 07:15] LABS: Hemoglobin 7.9 g/dL (12.0-16.0); Mean Corpuscular Hemoglobin 29.6 pg (25-34); Mean Corpuscular Hgb Conc 32.9 g/dL (32-36); Mean Corpuscular Volume 89.9 fL (80-100); Platelet Count 80 K/uL (130-400); Platelet Estimate Decreased (Normal); RDW Coefficient of Variation 14.4 % (11.5-14.5); RDW Standard Deviation 47.1 fL (36.4-46.3); Red Blood Count 2.67 M/uL (4.2-5.4); White Blood Count 12.58 K/uL (4.8-10.8)
[2021-08-25] MEDS: PRENATAL VITAMIN 1 TAB PO SCH (08:10)
[2021-08-25] MEDS: DOCUSATE SODIUM 100 MG CAP PO SCH ×2 (08:11→19:58)
[2021-08-25] MEDS: FERROUS SULFATE 325 MG TAB PO SCH (08:11)
[2021-08-25] MEDS: FAMOTIDINE 20 MG TAB PO SCH ×2 (08:11→19:58)
--- NOTE | 2021-08-25 09:11 | Obstetrical Progress Note ---
Date of Service August 25, 2021 Assessment & Plan (1) Encounter for care and examination after delivery: 30yo day 1 s/p SV with OR repair of a complicated laceration. Doing well. Had a temp of 38.1 last night. Denies any abd pain or other infection related symptoms. Temp likely related to Cytotec placed for bleeding control following delivery. H/H 7.9/24.0 from 9.5/30 on admission. Denies anemia symptoms. H/H level is consistent with 700mL bleeding from delivery and complicated laceration. Subjective Ambulation: ambulating normally Voiding: no voiding problems Passing Gas:: Yes Diet Tolerance:: regular diet Lochia:: Moderate Feeding Type:: breast feeding Had a temp of 38.1 last night. Denies any abd pain or othe infection related symptoms. Doing well. Physical Exam Constitutional WD/WN, vitals as above Respiratory normal respiratory effort; no respiratory distress and no labored breathing Gastrointestinal (Abdomen) Inspection/Auscultation: abdomen normal to inspection; abdomen not distended Percussion/Palpation: abdomen soft; abdomen nontender, no guarding and abdomen not rigid Genitourinary OB Exam Abdomen: + fundal height Fundus: + firm and + relation to umbilicus (Below); not tender or not boggy Results & Data ([facility]) Vital Signs (Past 12 Hours) Vital Signs Temp Pulse Resp BP Pulse Ox 08/25/21 04:35 37.7 C H 93 H 20 157/91 H 96 08/24/21 23:35 37.9 C H 92 H 20 141/84 H 97
[2021-08-25 13:09] LABS: Albumin Level 2.8 gm/dl (3.4-5.0); BUN Creatinine Ratio 14.5 (10-20); Bilirubin,Total 0.3 mg/dl (0.2-1.0); Calcium 8.1 mg/dl (8.5-10.1); Creatinine Clr Calc Pharmacy 157.2 ml/min; Est GFR (African American) 140.2 ml/min; Globulin 2.7 gm/dl (2.5-4.0); Potassium 3.8 mmol/L (3.5-5.1); Total Protein 5.5 gm/dl (6.0-8.3)
[2021-08-25 13:13] LABS: Hematocrit (blood only) 27.1 % (37-47); Hemoglobin 8.8 g/dL (12.0-16.0); Mean Corpuscular Hemoglobin 28.9 pg (25-34); Mean Corpuscular Hgb Conc 32.5 g/dL (32-36); Mean Corpuscular Volume 89.1 fL (80-100); Mean Platelet Volume 13.8 fL (7.4-10.4); Platelet Count 84 K/uL (130-400); Platelet Estimate Decreased (Normal); RDW Coefficient of Variation 14.2 % (11.5-14.5); RDW Standard Deviation 46.3 fL (36.4-46.3); Red Blood Count 3.04 M/uL (4.2-5.4); White Blood Count 13.04 K/uL (4.8-10.8)
[2021-08-25] MEDS ORDERED: bisacodyL 5 MG TABEC PO SCH (20:00)
[2021-08-25] MEDS: LABETALOL HCL 200 MG TAB PO SCH (23:22)
[2021-08-25] MEDS: ACETAMINOPHEN 325 MG TAB PO PRN (23:23)
[2021-08-26 03:06] VITALS: O2SAT 98
[2021-08-26 06:16] LABS: Hematocrit (blood only) 25.1 % (37-47); Hemoglobin 7.8 g/dL (12.0-16.0)
[2021-08-26] MEDS: LEVOTHYROXINE SODIUM 112 MCG TABLET PO SCH (06:19)
--- NOTE | 2021-08-26 06:42 | Obstetrical Progress Note ---
Date of Service <Andriy Rooney DO - Last Filed: 08/26/21 07:32> August 26, 2021 Assessment & Plan <Andriy Rooney DO - Last Filed: 08/26/21 07:32> (1) Encounter for care and examination after delivery: 30 yo post day 2 from vaginal delivery, doing well. -Continue routine post care. - vital signs reviewed and WNL. (Tmax 37.7) -Blood type O-, GBS -, Rubella Immune -Encourage ambulation, monitor and control pain with Motrin, tylenol PRN, resume regular diet, monitor lochia. -encourage breast feeding. -hemoglobin 7.8. -Plan for discharge with follow up in office in one week for blood pressure ch nathaniel and then 6 weeks for post . Will send home on home iron supplements until post visit. <Jatin Loving MD - Last Filed: 08/28/21 16:03> (1) Encounter for care and examination after delivery: Subjective <Andriy Rooney - Last Filed: 08/26/21 07:32> Ambulation: ambulating normally Voiding: no voiding problems Passing Gas:: Yes Diet Tolerance:: regular diet Lochia:: Small Feeding Type:: breast feeding Current Pain Level(1-10): 0 Review of Systems Denies fever, chills, sweats Denies shortness of breath, difficulty breathing, chest pain, palpitations, chest pressure. Denies breast pain. Denies dysuria. Denies headache or changes in vision Physical Exam <Andriy Rooney - Last Filed: 08/26/21 07:32> General: Alert, oriented. No acute distress. Cardiac: Regular rate and rhythm, no murmurs/rubs/gallops. Respiratory: Clear to auscultation bilaterally a/p, no wheezes/rales/rhonchi. No increased work of breathing. Symmetrical chest rise. No respiratory distress. Abdomen: Soft, nontender, nondistended. Bowel sounds present. Uterus: Uterine fundus firm, palpable 3 cm below umbilicus. Lower Extremities: No lower extremity edema or swelling. No deep calf pain. Raymond's negative bilaterally Results & Data ([facility]) <Andriy Rooney DO - Last Filed: 08/26/21 07:32> Vital Signs (Past 12 Hours) Vital Signs Temp Pulse Resp BP Pulse Ox 08/26/21 03:05 36.5 C 73 16 125/81 98 08/25/21 23:05 170/108 H 08/25/21 23:00 36.8 C 72 16 155/97 H 99 08/25/21 19:35 36.9 C 74 18 148/92 H 98 <Jatin Loving MD - Last Filed: 08/28/21 16:03> Co-Signing Physician Notes Patient seen and agree with the above findings and plan. Mild range BPs noted and started on Labetalol 200mg BID. BPs normal since. Will monitor BPs this AM and plan for discharge with 1 week BP check if normal. Denies any PIH symptoms. PIH labs normal Resident Activity Tracking <Andriy Rooney DO - Last Filed: 08/26/21 07:32> Resident Involvement: Resident Care Provided Care Provided: OB Delivery
[2021-08-26] MEDS: DOCUSATE SODIUM 100 MG CAP PO SCH (08:19)
[2021-08-26] MEDS: FERROUS SULFATE 325 MG TAB PO SCH (08:19)
[2021-08-26] MEDS: IBUPROFEN 600 MG TAB PO PRN (08:20)
[2021-08-26] MEDS: LABETALOL HCL 200 MG TAB PO SCH (08:20)
[2021-08-26] MEDS: FAMOTIDINE 20 MG TAB PO SCH (08:20)
[2021-08-26] MEDS: PRENATAL VITAMIN 1 TAB PO SCH ×2 (10:33→10:34)
[2021-08-26 11:40] VITALS: BP 138/81; PULSE 68; TEMP 97.9
--- NOTE | 2021-08-30 06:23 | Discharge Summary (DS) ---
DATE OF ADMISSION: 08/23/2021. DATE OF DISCHARGE: 08/26/2021. HOSPITAL COURSE: The patient was admitted to labor and delivery for induction of labor for type 1 di abetes. The patient initially received a Tejeda bulb followed by oxytocin per regular protocol. The patient received an epidural for anesthesia and progressed in labor to complete +2 station. The johan ent ultimately had a vaginal delivery followed by complicated laceration requiring a repair in the OR . The patient's remaining course was complicated by elevated blood pressures, started on labetalol 200 mg daily. Preeclampsia labs were normal. The patient's blood pressure stabilized and w as stable for discharge on day #2, was discharged home in stable condition with both writt en and verbal discharge instructions. The patient was planned for a 1-week blood pressure check and 6-week visit. Job ID: [id number]
== END 2021-08-26 14:20 | disposition home or self-care (01) | DRG 768 ==
LOC: 4S1 07:30 → 4S2 08-24 17:46

== ENCOUNTER 2023-11-22 16:39 | Observation (INO) ==
--- NOTE | 2023-11-22 17:07 | Emergency Department Note ---
Impression & Plan CAP (community acquired pneumonia), Type 1 diabetes mellitus, Hypokalemia, Hypomagnesemia, Hyponatremia ED Provider Note NAME: LANETTE BURNHAM AGE: 33 SEX: F : 1990 ARRIVES VIA: Walk-In INFORMANT: Patient, ED PROVIDER(S): Jersey Savage MD CHIEF COMPLAINT: Cough, fever MEDICAL DECISION MAKING: Patient presents due to concern for cough and associated fever. IV was established and blood work was obtained. Patient with a white count of 15 and concern for right lower lobe pneumonia. The patient was ordered Augmentin. Hemoglobin 11.4. Platelet count is unremarkable with normal kidney function and TSH. Patient is positive for human metapneumovirus. Patient known history of diabetes but BSG 117. Patient was reassessed and thought that she felt a little bit improved but then seemed to feel as though she was having a recurrence of fever and the patient's heart rate was elevated after 2 L of IV fluids. Given the patient's comorbidities and associated status I do think it reasonable for the patient to remain inpatient. This was discussed with the patient she is comfortable with current plan of care. I did Siuta the on-call hospitalist service Dr. Cole and the patient was admitted to the medicine service. Discussion w/ other healthcare providers: None Prior /Outside records reviewed: None Differential diagnosis: Reactive airway disease, pneumonia, pneumothorax, COPD, CHF, ACS, pulmonary embolism, musculoskeletal, GERD as well as other pathologies were considered. Diagnostics, as interpreted by me: ECG: Sinus tachycardia, rate of 122, normal intervals, normal axis no ST elevations. Repeat EKG interpreted by myself Sinus tachycardia, rate 117, normal intervals, normal axis no ST elevations. Cardiac monitoring: An order was placed for continuous cardiac monitoring. The monitor shows a rate of 122 with tachycardic and regular rhythm. Patient was placed on pulse oximetry Medical decision rules: Curb 65 score Imaging studies: I informally interpreted the patient's chest x-ray with right lower lobe pneumonia with formal report to follow. HPI: Patient presents due to concern for worsening symptoms which include cough and fever. The patient did have a fever to 102.5 and did take some Tylenol at 4:00. The patient's cough has been productive with yellow sputum. The patient is 22 weeks and states no issues thus far. Patient has had associated cough and sometimes posttussive will have nausea and vomiting. Patient denies any known sick contacts or recent travel but does work in the emergency department. Patient does have a history of diabetes and hypothyroidism. Patient states that her sugars been in the 150s. Patient denies any diarrhea. No abdominal pain chest pain or shortness of breath. PAST MEDICAL HISTORY: See Below PAST SURGICAL HISTORY: See Below SOCIAL HISTORY: See Below HOME MEDICATIONS: See Below ALLERGIES: See Below VITALS: See Below PHYSICAL EXAMINATION: GENERAL: Mildly ill but nontoxic in appearance. EYE EXAM: Normal conjunctiva. PERRL, no anisocoria and EOM's grossly intact w/o pain. OROPHARYNX: Moist mucus membranes, grossly normal dentition. NECK: Trachea midline, no stridor. Supple, no nuchal rigidity, no adenopathy, non-tender. No signs of meningismus. FROM of the neck with good chin to chest and neck extension. LUNGS: Clear to auscultation. Normal chest wall mechanics. HEART: Tachycardic and regular, no MRG. ABDOMEN: Abdomen soft, gravid abdomen, non-tender, no masses, no rebound or guarding. BACK: No CVA TTP. SKIN: No rashes and no bruising. UPPER EXTREMITIES: Upper extremities are grossly normal. LOWER EXTREMITIES: Grossly normal, no edema. NEURO EXAM: A&O x3, cranial nerves II-XII grossly intact, normal speech, moves all 4 extremities. Past Med/Surg History Medical History Miscarriage History of COVID-19 03/2022- cold symptoms, resolved Insulin pump in place History of chicken pox Type 1 diabetes mellitus affecting , antepartum Hypothyroidism Surgical History S/P wisdom tooth extraction Family History Mother Hypertension Hyperlipidemia Type 2 diabetes mellitus Sleep apnea Obesity Hypothyroidism Father Hypertension Hyperlipidemia GERD (gastroesophageal reflux disease) Grandmother (Maternal) Hypothyroidism Heart failure Sister Type 1 diabetes mellitus Samreen's thyroiditis Grandfather (Maternal) Myocardial infarction Cardiac disorder Grandmother (Paternal) Diabetes Cardiac disorder Grandfather (Paternal) Cardiac disorder Myocardial infarction Sister Hypothyroidism Brother Hypertension Son No problems noted. Denies family history of Ovarian cancer Prostate cancer Breast cancer Colorectal cancer Social History Smoking Status: Never smoker Second Hand Exposure: No; Do You Dip or Chew Tobacco: No; Hx Alcohol Use: No Hx Substance Use: No Preferred Language: Djib[place]ian Communication Ability: Effective Visual Impairment: No Limitations Hearing Ability: Hard of Hearing Textile Stylist Required: No Beliefs That Will Affect Care: None marital status: marital status details: Waldo Burnham [phone] Current Living Situation: Spouse Current Living Situation Comment: lives with spouse, son, 3 cats, spouse to change litter current occupational status: employed current occupation: pharamacist How many Children do You have: 1 Feels Safe at Home: Yes Childhood Exposure to Second-Hand Smoke: No Diet: regular caffeine: Yes during the past year weight has: remained stable Dental Care, Regularly: No Physical Activity Frequency: 1-2 Times per Week Seatbelt Use: always Sunscreen Use: Yes Assistive Devices: None Allergies Allergies Allergy/AdvReac Type Severity Reaction Status Date / Time nickel Allergy Unknown contact Verified 11/22/23 22:49 dermatitis No Known Drug Allergies Allergy 0 Verified 11/22/23 22:49 Home Meds Home Medications Medication Instructions Recorded Confirmed blood sugar diagnostic (Contour #10 ea 08/14/22 11/26/23 Next Test Strips) prenat.vits,mai,ucf-acam-jsews 1 tab PO QAM 01/01/23 11/26/23 acetaminophen 500 mg tablet 1,000 mg PO Q8 PRN Pain 11/22/23 11/26/23 (Tylenol Extra Strength) aspirin 81 mg tablet,delayed 81 mg PO DAILY 11/22/23 11/26/23 release Previous Rx's Medication Instructions Recorded glucagon HCl 1 mg/mL solution for 1 mg IM UD PRN hypoglycemia #2 ea 10/16/21 injection insulin syringe-needle U-100 0.3 #100 ea 04/23/22 mL 31 gauge x 5/16" (BD Insulin Syringe Ultra-Fine) Humalog U-100 Insulin 100 unit/mL 60 unit (0.6 mL) continuous 10/19/23 subcutaneous solution (insulin subcutaneous infusion DAILY #60 mL lispro) levothyroxine 200 mcg tablet 200 mcg PO DAILY #90 tabs 11/13/23 albuterol sulfate 90 mcg/actuation 2 inh inhalation Q4H PRN shortness 11/24/23 aerosol inhaler (Ventolin HFA) of breath or wheezing or cough #8.5 grams cefpodoxime 200 mg tablet 200 mg PO BID 5 days #10 tabs 11/24/23 Results & Data (ED) Vital Signs Vital Signs - 24 hr 11/22/23 16:50 Temperature 37.3 C Temperature Source Oral Pulse Rate 128 H Respiratory Rate 19 Respiratory Effort / Characteristics Non-Labored Spontaneous Respiratory Depth Normal Blood Pressure 126/77 Blood Pressure Mean 93 Pulse Oximetry 94 Oxygen Delivery Method Room Air Sepsis Recent Fever Within 48 Hours No Sepsis New/Unexplained Change in Mental Status No Sepsis Action Taken by Nursing No Action Required Home Medications Current Medication List: was personally reviewed by me Laboratory Data Attestation: I reviewed the patient's lab results. 11/24/23 07:25 11/24/23 07:25 Lab Results 11/22/23 11/22/23 Range/Units 17:00 17:05 WBC 15.74 H (4.8-10.8) K/ul RBC 3.94 L (4.20-5.40) M/uL Hgb 11.4 L (12.0-16.0) g/dl Hct 34.3 L (37.0-47.0) % MCV 87.1 (80.0-100.0) fL MCH 28.9 (25.0-34.0) pg MCHC 33.2 (32.0-36.0) g/dL RDW Std Deviation 42.8 (36.4-46.3) fL RDW Coeff of Melisa 13.5 (11.5-14.5) % Plt Count 138 (130-400) K/uL MPV 12.6 H (9.4-12.4) fL Immature Gran % (Auto) 0.4 % Neut % (Auto) 88.3 % Lymph % (Auto) 6.0 % [place] % (Auto) 5.0 % Eos % (Auto) 0.1 % Baso % (Auto) 0.2 % Neut # (Auto) 13.90 H (1.40-6.50) K/uL Lymph # (Auto) 0.94 L (1.20-3.40) K/uL [place] # (Auto) 0.79 H (0.11-0.59) K/uL Eos # (Auto) 0.01 (0.00-0.50) K/uL Baso # (Auto) 0.03 (0.00-0.20) K/uL Immature Gran # (Auto) 0.07 (0.01-0.20) K/uL Sodium 132 L (136-145) mmol/L Potassium 3.2 L (3.5-5.1) mmol/L Chloride 100 (98-107) mmol/L Carbon Dioxide 21 (21-32) mmol/L Anion Gap 11 (3-11) BUN 7 (6-23) mg/dl Creatinine 0.46 L (0.6-1.2) mg/dl Est Cr Clr Drug Dosing 162.8 ml/min Est GFR ( Amer) > 150.0 ml/min Est GFR (Non-Af Amer) 130.7 ml/min BUN/Creatinine Ratio 15.2 (10-20) Glucose 117 H (70-99(Fasting)) mg/dl Calcium 9.7 (8.6-10.3) mg/dl Magnesium 1.4 L (1.7-2.4) mg/dl Total Bilirubin 0.7 (0.2-1.0) mg/dl AST 12 L (13-39) U/L ALT 7 (7-52) U/L Alkaline Phosphatase 63 (34-104) U/L Troponin I High Sens 3.9 (0-14) pg/ml Total Protein 7.4 (6.0-8.3) gm/dl Albumin 3.6 (3.4-5.0) gm/dl Globulin 3.8 (2.5-4.0) gm/dl Albumin/Globulin Ratio 0.9 (0.9-2) TSH 1.366 (0.300-4.500) uIu/ml Adenovirus (PCR) Not Detected (NotDetected) B. pertussis DNA (PCR) Not Detected (NotDetected) B.parapertussis DNA PCR Not Detected (NotDetected) C. pneumoniae DNA (PCR) Not Detected (NotDetected) Coronavirus OC43 (PCR) Not Detected (NotDetected) Coronavirus HKU1 (PCR) Not Detected (NotDetected) Coronavirus 229E (PCR) Not Detected (NotDetected) SARS-CoV-2 (PCR) Not Detected (NotDetected) Coronavirus NL63 (PCR) Not Detected (NotDetected) Human Metapneumovir PCR DETECTED A (NotDetected) Influenza Type A (PCR) Not Detected (NotDetected) Influenza Type B (PCR) Not Detected (NotDetected) M. pneumoniae (PCR) Not Detected (NotDetected) Parainfluenza 1 (PCR) Not Detected (NotDetected) Parainfluenza 2 (PCR) Not Detected (NotDetected) Parainfluenza 3 (PCR) Not Detected (NotDetected) Parainfluenza 4 (PCR) Not Detected (NotDetected) RSV (PCR) Not Detected (NotDetected) Entero/Rhino (PCR) Not Detected (NotDetected) Administered Medications Discontinued Medications Acetaminophen (Acetaminophen 500 Mg Tab) 1,000 mg PO Q8H PRN PRN Reason: Pain or Fever Stop: 12/24/23 11:12 Last Admin: 11/24/23 11:23 Dose: 1,000 mg Documented By: [id number] Al Hydrox/Mg Hydrox/Simethicone (Aluminum/Magnesium Susp 30 Ml Udc) 30 ml PO Q6H PRN PRN Reason: Heartburn Stop: 12/23/23 18:28 Last Admin: 11/23/23 18:39 Dose: 30 ml Documented By: ERNST Albuterol (Albuterol Hfa 8 Gm Inhaler) 2 puffs INH Q6R [facility] Stop: 12/24/23 12:59 Last Admin: 11/24/23 13:27 Dose: 2 puffs Documented By: LEAH Amoxicillin/Clavulanate Potassium (Amoxicillin/Clavulanate 875 Mg Tab) 1 tab PO NOW ONE; Protocol Stop: 11/22/23 19:01 Last Admin: 11/22/23 19:28 Dose: 1 tab Documented By: MABLE Aspirin (Aspirin 81 Mg Ectab) 81 mg PO DAILY [facility] Stop: 12/23/23 08:59 Last Admin: 11/24/23 09:04 Dose: 81 mg Documented By: [id number] Admin: 11/23/23 08:17 Dose: 81 mg Documented By: MAGEN Famotidine (Famotidine 10 Mg Tablet) 10 mg PO DAILY PRN PRN Reason: reflux Stop: 12/23/23 03:24 Last Admin: 11/23/23 03:46 Dose: 10 mg Documented By: THOR Sodium Chloride (Nss) 2,000 mls @ 999 mls/hr IV .Q2H1M [facility] Stop: 11/22/23 19:15 Last Infusion: 11/22/23 20:01 Dose: Infused Documented By: Admin: 11/22/23 17:40 Dose: 999 mls/hr Documented By: MAGEN Famotidine (Pepcid 20mg Iv Push) 20 mg in 5 mls @ 2.5 mls/min IV NOW STA Stop: 11/22/23 17:50 Last Admin: 11/22/23 17:53 Dose: 2.5 mls/min Documented By: MAGEN Sodium Chloride (Nss) 500 mls @ 999 mls/hr IV .Q31M ONE Stop: 11/22/23 21:11 Last Infusion: 11/22/23 22:14 Dose: Infused Documented By: Admin: 11/22/23 21:12 Dose: 999 mls/hr Documented By: TONY Acetaminophen (Ofirmev) 1,000 mg in 100 mls @ 400 mls/hr IV NOW STA Stop: 11/22/23 21:42 Last Infusion: 11/22/23 23:16 Dose: Infused Documented By: Admin: 11/22/23 22:19 Dose: 400 mls/hr Documented By: MABLE Ceftriaxone Sodium 1,000 mg/ (Dextrose) 50 mls @ 100 mls/hr IV Q24H [facility]; Protocol Stop: 11/29/23 22:29 Last Infusion: 11/23/23 21:21 Dose: Infused Documented By: Admin: 11/23/23 20:46 Dose: 100 mls/hr Documented By: Infusion: 11/22/23 23:41 Dose: Infused Documented By: Admin: 11/22/23 23:03 Dose: 100 mls/hr Documented By: ISSAC Azithromycin 500 mg/ Dextrose 255 mls @ 127.5 mls/hr IV Q24H [facility] Stop: 11/29/23 22:59 Last Infusion: 11/24/23 01:17 Dose: Infused Documented By: Admin: 11/23/23 22:34 Dose: 127.5 mls/hr Documented By: Infusion: 11/23/23 01:44 Dose: Infused Documented By: Admin: 11/22/23 23:39 Dose: 127.5 mls/hr Documented By: MABLE Acetaminophen (Ofirmev) 1,000 mg in 100 mls @ 400 mls/hr IV Q8H PRN PRN Reason: Pain or Fever Stop: 11/25/23 22:28 Last Infusion: 11/23/23 13:27 Dose: Infused Documented By: Admin: 11/23/23 12:12 Dose: 400 mls/hr Documented By: MAGEN Sodium Chloride (Nss) 1,000 mls @ 100 mls/hr IV .Q10H [facility] Stop: 11/23/23 22:50 Last Infusion: 11/23/23 23:06 Dose: Infused Documented By: W Admin: 11/23/23 13:03 Dose: 100 mls/hr Documented By: Infusion: 11/23/23 13:03 Dose: Infused Documented By: Admin: 11/23/23 03:32 Dose: 100 mls/hr Documented By: THOR Potassium Chloride (K Elvin / Wtr) 10 meq in 100 mls @ 100 mls/hr IV Q1H [facility] Stop: 11/23/23 05:14 Last Infusion: 11/23/23 06:45 Dose: Infused Documented By: Admin: 11/23/23 05:22 Dose: 75 mls/hr Documented By: Infusion: 11/23/23 04:55 Dose: Infused Documented By: Admin: 11/23/23 03:48 Dose: 100 mls/hr Documented By: HB Magnesium Sulfate/Dextrose (Magnesium Sulfate / D5w) 1 gm in 100 mls @ 50 mls/hr IV Q2H [facility] Stop: 11/23/23 16:29 Last Infusion: 11/23/23 16:53 Dose: Infused Documented By: Admin: 11/23/23 14:34 Dose: 50 mls/hr Documented By: Infusion: 11/23/23 14:34 Dose: Infused Documented By: Admin: 11/23/23 12:59 Dose: 50 mls/hr Documented By: SUSANNA Insulin Aspart (Insulin, Rapid-Acting Pump) 1 each N/A ACHS [facility]; Protocol Stop: 12/23/23 07:29 Last Admin: 11/24/23 13:14 Dose: 1 each Documented By: [id number] Co-signed By: OSMAR Admin: 11/24/23 09:05 Dose: 1 each Documented By: [id number] Co-signed By: OSMAR Admin: 11/23/23 20:46 Dose: 1 each Documented By: OZIEL Co-signed By: LELE Admin: 11/23/23 18:30 Dose: 1 each Documented By: ERNST Co-signed By: JOSE Admin: 11/23/23 13:25 Dose: 1 each Documented By: MAGEN Co-signed By: ESTEVAN Admin: 11/23/23 09:15 Dose: 1 each Documented By: MAGEN Co-signed By: KAILA Levalbuterol HCl (Levalbuterol 1.25 Mg/3 Ml Neb) 1.25 mg NEB NOW STA Stop: 11/22/23 20:42 Last Admin: 11/22/23 21:15 Dose: 1.25 mg Documented By: Admin: 11/22/23 21:15 Dose: 1.25 mg Documented By: TONY Levothyroxine Sodium (Levothyroxine Sodium 200 Mcg Tablet) 200 mcg PO DAILYBB [facility] Stop: 12/23/23 06:29 Last Admin: 11/24/23 05:50 Dose: 200 mcg Documented By: Admin: 11/23/23 06:28 Dose: 200 mcg Documented By: THOR Magnesium Oxide (Magnesium Oxide 400 Mg Tab) 800 mg PO NOW STA Stop: 11/22/23 20:26 Last Admin: 11/22/23 22:20 Dose: 800 mg Documented By: MABLE Ondansetron HCl (Ondansetron Inj 2 Mg/Ml 2 Ml Vial) 4 mg IV NOW STA Stop: 11/22/23 20:42 Last Admin: 11/22/23 21:15 Dose: 4 mg Documented By: TONY Ondansetron HCl (Ondansetron Inj 2 Mg/Ml 2 Ml Vial) 4 mg IV NOW ONE Stop: 11/23/23 04:30 Last Admin: 11/23/23 06:45 Dose: Not Given Documented By: THOR Prenat Multivit/Lime Filter Operator/Iron/Folic Ac ( Vitamin 1 Tab) 1 tab PO QAM [facility] Stop: 12/23/23 08:59 Last Admin: 11/24/23 09:04 Dose: 1 tab Documented By: [id number] Admin: 11/23/23 08:17 Dose: 1 tab Documented By: KV Imaging Data Radiologist's Impression: Chest X-Ray 11/22/23 17:15 XR chest 1V portable CLINICAL HISTORY: weakness COMPARISON STUDY: No previous studies for comparison. FINDINGS: Lung volumes are normal. Patchy right lower lung opacity is present. There is no pneumothorax or pleural effusion. Cardiac size is normal. There is a possible hiatal hernia. There is no evidence for pulmonary edema. IMPRESSION: Patchy right lower lung opacity suggestive of pneumonia. Post treatment radiographs to ensure resolution are recommended. ACT 112: Negative or not required by law. Electronically signed by: Waldo Beach M.D. 11/22/2023 6:24 PM Discharge Plan Visit Data Chief Complaint: Flu Like Symptoms Stated Complaint: FEVER, COUGH ED Provider: Jersey Savage Discharge Problem: CAP (community acquired pneumonia), Type 1 diabetes mellitus, Hypokalemia, Hypomagnesemia, Hyponatremia Patient Disposition: Admitted As Inpatient Discharge Instructions Interventions: ED Discharge Assessment Last Done: 11/23/23 17:11 Discharge Problem: CAP (community acquired pneumonia) Qualifiers: Laterality: right Lung location: lower lobe of lung Qualified Code(s): J18.9 - Pneumonia, unspecified organism Type 1 diabetes mellitus Qualifiers: Diabetes mellitus complication status: with other specified complication Q ualified Code(s): E10.69 - Type 1 diabetes mellitus with other specified complication
[2023-11-22 17:30] LABS: Hematocrit (blood only) 34.3 % (37.0-47.0); Hemoglobin 11.4 g/dl (12.0-16.0); Mean Corpuscular Hemoglobin 28.9 pg (25.0-34.0); Mean Corpuscular Hgb Conc 33.2 g/dL (32.0-36.0); Mean Corpuscular Volume 87.1 fL (80.0-100.0); Red Blood Count 3.94 M/uL (4.20-5.40); White Blood Count 15.74 K/ul (4.8-10.8)
[2023-11-22 17:31] LABS: Basophils # (auto) 0.03 K/uL (0.00-0.20); Basophils % (auto) 0.2 %; Eosinophils # (auto) 0.01 K/uL (0.00-0.50); Eosinophils % (auto) 0.1 %; Immature Granulocytes # (auto) 0.07 K/uL (0.01-0.20); Immature Granulocytes % (auto) 0.4 %; Lymphocytes # (auto) 0.94 K/uL (1.20-3.40); Mean Platelet Volume 12.6 fL (9.4-12.4); Monocytes # (auto) 0.79 K/uL (0.11-0.59); Neutrophils % (auto) 88.3 %; Platelet Count 138 K/uL (130-400); RDW Coefficient of Variation 13.5 % (11.5-14.5); RDW Standard Deviation 42.8 fL (36.4-46.3)
[2023-11-22] MEDS: SODIUM CHLORIDE 0.9% 2,000 ML IV SCH (17:40)
[2023-11-22 17:47] LABS: Alanine Aminotransferase 7 U/L (7-52); Albumin Globulin Ratio 0.9 (0.9-2); Albumin Level 3.6 gm/dl (3.4-5.0); Alkaline Phosphatase 63 U/L (34-104); Anion Gap 11 (3-11); Aspartate Aminotransferase 12 U/L (13-39); BUN Creatinine Ratio 15.2 (10-20); Bilirubin,Total 0.7 mg/dl (0.2-1.0); Blood Urea Nitrogen 7 mg/dl (6-23); Calcium 9.7 mg/dl (8.6-10.3); Carbon Dioxide 21 mmol/L (21-32); Chloride 100 mmol/L (98-107); Creatinine Clr Calc Pharmacy 162.8 ml/min; Est GFR (African American) > 150.0 ml/min; Est GFR (Non-African American) 130.7 ml/min; Globulin 3.8 gm/dl (2.5-4.0); Glucose 117 mg/dl (70-99(Fasting)); Magnesium 1.4 mg/dl (1.7-2.4); Potassium 3.2 mmol/L (3.5-5.1); Sodium 132 mmol/L (136-145); Total Protein 7.4 gm/dl (6.0-8.3)
[2023-11-22] MEDS: FAMOTIDINE 20MG IV PUSH 20 MG/5 ML SYR IV STA (17:53)
[2023-11-22 18:02] LABS: Thyroid Stimulating Hormone 1.366 uIu/ml (0.300-4.500)
[2023-11-22 18:14] LABS: Adenovirus PCR Not Detected (NotDetected); Bordetella parapertussis PCR Not Detected (NotDetected); Bordetella pertussis PCR Not Detected (NotDetected); Chlamydia pneumoniae PCR Not Detected (NotDetected); Coronavirus 229E PCR Not Detected (NotDetected); Coronavirus CoV-2 (COVID19)PCR Not Detected (NotDetected); Coronavirus HKU1 PCR Not Detected (NotDetected); Coronavirus NL63 PCR Not Detected (NotDetected); Coronavirus OC43PCR Not Detected (NotDetected); Human Metapneumovirus PCR DETECTED (NotDetected); Influenza A PCR Not Detected (NotDetected); Influenza B PCR Not Detected (NotDetected); Mycoplasma pneumoniae PCR Not Detected (NotDetected); Parainfluenza Virus 1 PCR Not Detected (NotDetected); Parainfluenza Virus 2 PCR Not Detected (NotDetected); Parainfluenza Virus 3 PCR Not Detected (NotDetected); Parainfluenza Virus 4 PCR Not Detected (NotDetected); Respiratory Syncytial VirusPCR Not Detected (NotDetected); Rhinovirus/Enterovirus PCR Not Detected (NotDetected)
--- NOTE | 2023-11-22 18:25 | XRay Report ---
XR chest 1V portable CLINICAL HISTORY: weakness COMPARISON STUDY: No previous studies for comparison. FINDINGS: Lung volumes are normal. Patchy right lower lung opacity is present. There is no pneumothor ax or pleural effusion. Cardiac size is normal. There is a possible hiatal hernia. There is no eviden ce for pulmonary edema. IMPRESSION: Patchy right lower lung opacity suggestive of pneumonia. Post treatment radiographs to e nsure resolution are recommended. ACT 112: Negative or not required by law. Electronically signed by: Waldo Beach M.D. 11/22/2023 6:24 PM
[2023-11-22] MEDS: AMOXICILLIN/CLAVULANATE 875 MG TAB PO ONE (19:28)
[2023-11-22 21:06] LABS: Troponin I High Sensitivity 3.9 pg/ml (0-14)
[2023-11-22] MEDS: SODIUM CHLORIDE 0.9% 500 ML IV ONE (21:12)
[2023-11-22] MEDS: ONDANSETRON INJ 2 MG/ML 2 ML VIAL IV STA (21:15)
[2023-11-22] MEDS: LEVALBUTEROL 1.25 MG/3 ML NEB NEB STA (21:15)
[2023-11-22] MEDS: ACETAMINOPHEN 1,000 MG/100 ML VIAL IV STA (22:19)
[2023-11-22] MEDS: MAGNESIUM OXIDE 400 MG TAB PO STA (22:20)
--- NOTE | 2023-11-22 22:20 | History & Physical Report ---
Date of Service November 22, 2023 Assessment & Plan (1) CAP (community acquired pneumonia): Plan: - CXR concern for PNA; viral vs bacterial. 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: Plan: - continue levothyroxine (5) Hypokalemia: Plan: - K= 3.2; will replete - repeat BMP qAM (6) Hypomagnesemia: Plan: - Mg= 1.4; repleted - repeat with morning labs (7) Hyponatremia: Plan: - Na= 132; likely hypovolemic in the setting of poor PO intake - IVF as per above - repeat qAM (8) 22 weeks gestation of : Plan: - 22 weeks ; no complications thus far with this - close monitoring due to DM1, hypothyroidism - miscarriage 2021 - OB consult per pt request Plan Diet: DM1 VTE Prophylaxis- SCD, ambulation History of Present Illness Primary Care Provider: Cayla Perry MD 33 year old female with a past medical history of DM1, hypothyroidism presenting with URI symptoms. Currently 22 weeks , reports no complications with . Has been following regularly with OBGYN for care. Productive cough, yellow sputum x 1 week. Fever started today, up to 102. Denies chest pain, dyspnea. Notes some epigastric pain with coughing. Denies vaginal bleeding, discharge. Notes intermittent nausea/vomiting. No known sick contacts. ED Course Significant for: CXR with right lower lobe opacity concerning for PNA. Leukocytosis; WBC= 15.74. Respiratory biofire; + HMPV S/p 2.5L IVF, 1 dose Augmentin, Famotidine, Zofran in ED Allergies Allergy/AdvReac Type Severity Reaction Status Date / Time nickel Allergy Unknown contact Verified 11/22/23 22:49 dermatitis No Known Drug Allergies Allergy 0 Verified 11/22/23 22:49 Home Medications Medication Instructions Recorded Confirmed Type glucagon HCl 1 mg/mL solution for 1 mg IM UD PRN hypoglycemia #2 ea 10/16/21 11/26/23 Rx injection insulin syringe-needle U-100 0.3 #100 ea 04/23/22 11/26/23 Rx mL 31 gauge x 5/16" (BD Insulin Syringe Ultra-Fine) blood sugar diagnostic (Contour #10 ea 08/14/22 11/26/23 History Next Test Strips) prenat.vits,mai,ryi-doiu-pgfyp 1 tab PO QAM 01/01/23 11/26/23 History Humalog U-100 Insulin 100 unit/mL 60 unit (0.6 mL) continuous 10/19/23 11/26/23 Rx subcutaneous solution (insulin subcutaneous infusion DAILY #60 mL lispro) levothyroxine 200 mcg tablet 200 mcg PO DAILY #90 tabs 11/13/23 11/26/23 Rx acetaminophen 500 mg tablet 1,000 mg PO Q8 PRN Pain 11/22/23 11/26/23 History (Tylenol Extra Strength) aspirin 81 mg tablet,delayed 81 mg PO DAILY 11/22/23 11/26/23 History release albuterol sulfate 90 mcg/actuation 2 inh inhalation Q4H PRN shortness 11/24/23 11/26/23 Rx aerosol inhaler (Ventolin HFA) of breath or wheezing or cough #8.5 grams cefpodoxime 200 mg tablet 200 mg PO BID 5 days #10 tabs 11/24/23 11/26/23 Rx Past Med/Surg History Medical History (Updated 11/23/23 @ 02:03 by Polina Caballero, ) Miscarriage History of COVID-19 03/2022- cold symptoms, resolved Insulin pump in place History of chicken pox Type 1 diabetes mellitus affecting , antepartum Hypothyroidism Surgical History S/P wisdom tooth extraction Family History Mother Hypertension Hyperlipidemia Type 2 diabetes mellitus Sleep apnea Obesity Hypothyroidism Father Hypertension Hyperlipidemia GERD (gastroesophageal reflux disease) Grandmother (Maternal) Hypothyroidism Heart failure Sister Type 1 diabetes mellitus Samreen's thyroiditis Grandfather (Maternal) Myocardial infarction Cardiac disorder Grandmother (Paternal) Diabetes Cardiac disorder Grandfather (Paternal) Cardiac disorder Myocardial infarction Sister Hypothyroidism Brother Hypertension Son No problems noted. Denies family history of Ovarian cancer Prostate cancer Breast cancer Colorectal cancer Social History (Updated 08/06/23 @ 13:36 by Haydee Lindsay) Smoking Status: Never smoker Second Hand Exposure: No; Do You Dip or Chew Tobacco: No; Hx Alcohol Use: No Hx Substance Use: No Preferred Language: Bengali Communication Ability: Effective Visual Impairment: No Limitations Hearing Ability: Hard of Hearing Moderate Needs Teacher Required: No Beliefs That Will Affect Care: None marital status: marital status details: Waldo Weller (32) [phone] Current Living Situation: Spouse Current Living Situation Comment: lives with spouse, son, 3 cats, spouse to change litter current occupational status: employed current occupation: pharamacist How many Children do You have: 1 Feels Safe at Home: Yes Childhood Exposure to Second-Hand Smoke: No Diet: regular caffeine: Yes during the past year weight has: remained stable Dental Care, Regularly: No Physical Activity Frequency: 1-2 Times per Week Seatbelt Use: always Sunscreen Use: Yes Assistive Devices: None Review of Systems Review of Systems: As per above Physical Exam Physical Exam: Constitutional: well-appearing, no acute distress HEENT: NCAT, no conjunctival injection CV: regular rhythm, no murmur appreciated, extremities well-perfused, no LE edema Resp: CTABL, no wheezes/rales/rhonchi appreciated, no increased work of breathing GI: soft, nondistended, nontender MSK: no gross deformities appreciated Skin: warm, dry, no rash appreciated Neuro: alert, oriented, no focal neurologic deficit appreciated Results & Data Results & Data Vital Signs (Past 12 Hours) Vital Signs Temp Pulse Pulse Resp BP Pulse Ox O2 Del Method 11/22/23 21:32 129 H 11/22/23 19:30 107 H 17 99 11/22/23 19:20 110 H 18 100 11/22/23 19:10 106 H 16 97 11/22/23 19:00 103 H 16 97 11/22/23 18:56 108 H 16 115/74 97 Room Air 11/22/23 18:56 108 H 16 97 11/22/23 18:50 111 H 22 97 11/22/23 18:40 112 H 20 97 11/22/23 18:30 114 H 12 96 11/22/23 18:20 111 H 18 97 11/22/23 18:10 118 H 19 97 11/22/23 18:00 119 H 18 97 11/22/23 17:50 115 H 15 97 11/22/23 17:40 114 H 15 97 11/22/23 17:33 108 H 11/22/23 17:31 116 H 16 97 Room Air 11/22/23 17:30 112 H 19 97 11/22/23 17:20 108 H 17 97 11/22/23 17:14 118 H 16 97 11/22/23 16:50 37.3 C 128 H 19 126/77 94 Room Air Supervising Physician Co-Signing Physician Notes Attending addendum: I have supervised the medical residents activities, and agree with the H&P unless as otherwise noted. Assessment and Plan: Community-acquired pneumonia/SIRS- Ceftriaxone 2 g IV daily Azithromycin 500 mg IV daily Duonebs every 4 hours while awake and every 2 hours when necessary. Status post 2.5 L IV fluid in the ED Continue NSS at 100 mL/h x 1 additional liter Diabetes mellitus type 1/- Patient will use own insulin pump per hospital protocol Hypothyroidism/Samreen's thyroiditis- Continue levothyroxine Hypomagnesemia- Magnesium 1.4- Replace with magnesium oxide 400 mg p.o. daily, recheck in a.m. 22-week Consult will be Resident Activity Tracking Resident Involvement: Resident Care Provided Care Provided: Adult Hospital Medicine
[2023-11-22] MEDS: cefTRIAXone SODIUM 1,000 MG in DEXTROSE 5 % MINI-B 50 ML IV SCH (23:03)
[2023-11-22] MEDS: AZITHROMYCIN 500 MG in DEXTROSE 5% 250 ML IV SCH (23:39)
[2023-11-23] MEDS ORDERED: GLUCAGON FOR INJ 1 MG VIAL SQ PRN (02:51)
[2023-11-23] MEDS ORDERED: GLUCOSE 10 TAB/TUBE PO PRN ×2 (02:51→04:00)
[2023-11-23] MEDS ORDERED: DEXTROSE 50% 50 ML SYRINGE IV PRN ×2 (02:51→04:00)
[2023-11-23] MEDS ORDERED: PHARMACY GLYCEMIC MGMT CONSULT PRN (02:51)
[2023-11-23] MEDS ORDERED: GLUCOSE 40% GEL 15 GM TUBE PO PRN ×2 (02:51→04:00)
[2023-11-23] MEDS ORDERED: CARBOHYDRATES FOR HYPOGLYCEMIA PO PRN ×2 (02:51→04:00)
[2023-11-23] MEDS: SODIUM CHLORIDE 0.9% 1,000 ML IV SCH (03:32)
[2023-11-23] MEDS: FAMOTIDINE 10 MG TABLET PO PRN (03:46)
[2023-11-23] MEDS: POTASSIUM CHLORIDE / WTR 10 MEQ/100 ML PLCT IV SCH (03:48)
[2023-11-23] MEDS ORDERED: GLUCAGON FOR INJ 1 MG VIAL IM PRN (04:00)
[2023-11-23] MEDS ORDERED: INSULIN ASPART 100 UNITS/ML VIAL SC PRN (04:00)
[2023-11-23] MEDS: LEVOTHYROXINE SODIUM 200 MCG TABLET PO SCH (06:28)
[2023-11-23] MEDS: ONDANSETRON INJ 2 MG/ML 2 ML VIAL IV ONE (06:45)
--- NOTE | 2023-11-23 07:13 | OB/GYN Consultation ---
Date of Consultation November 23, 2023 Assessment & Plan (1) 22 weeks gestation of : (2) CAP (community acquired pneumonia): (3) Type 1 diabetes mellitus during : Plan Will offer daily heart tones PNA management per primary team Okay to perform CXR as indicated Avoid teratogenic medications Thank you for allowing us to participate in the care of this patient Please reach out with any further questions Supervising Physician Co-Signing Physician Notes Resident Physician Supervision Note: I interviewed and examined the patient. Discussed with Dr. Wolf and agree with findings and plan as documented in the note. Any exceptions or clarifications are listed here: 33yo @ 22 12/07, admitted from ER with community-acquired pneumonia. Her is complicated by Type 1 diabetes, hypothyroidism, abnormal initial genetics testing - repeat testing was normal. Discussion with patient about respiratory illness in - reviewed medications that are currently prescribed, these are ok for use during . If primary team feels imaging is necessary, ok for imaging - discussed minimal radiation risks to with studies like chest x-ray. Advise keep O2 saturation >95% to ensure adequate oxygenation. Discussed with patient that fever and respiratory illness can increase risk of labor and pulmonary edema, and more severe course of pneumonia. Continue her regular management of her diabetes and hypothroidism. Will plan for daily heart checks, I have notified L&D staff of this order. OB will follow along - please do not hesitate to reach out with any additional questions. Documented By: Kiki Calvillo, DO History of Present Illness Reason for Consultation: Attending Physician: Bertha Pat MD History of Present Illness 33 yo admitted for pneumonia at 22w5d. OB consulted in setting of . Pt feeling overall better since admission and starting antibiotics. + movement. No LOF. Allergies Allergy/AdvReac Type Severity Reaction Status Date / Time nickel Allergy Unknown contact Verified 11/22/23 22:49 dermatitis No Known Drug Allergies Allergy 0 Verified 11/22/23 22:49 Home Medications Medication Instructions Recorded Confirmed Type glucagon HCl 1 mg/mL solution for 1 mg IM UD PRN hypoglycemia #2 ea 10/16/21 11/22/23 Rx injection insulin syringe-needle U-100 0.3 #100 ea 04/23/22 11/22/23 Rx mL 31 gauge x 5/16" (BD Insulin Syringe Ultra-Fine) blood sugar diagnostic (Contour #10 ea 08/14/22 11/22/23 History Next Test Strips) insulin glargine 100 unit/mL 30 unit (0.3 mL) subcut DAILY #10 08/14/22 11/22/23 Rx subcutaneous solution (Lantus mL U-100 Insulin) prenat.vits,mai,wao-qljo-ihjdo 1 tab PO QAM 01/01/23 11/22/23 History Humalog U-100 Insulin 100 unit/mL 60 unit (0.6 mL) continuous 10/19/23 11/22/23 Rx subcutaneous solution (insulin subcutaneous infusion DAILY #60 mL lispro) levothyroxine 200 mcg tablet 200 mcg PO DAILY #90 tabs 11/13/23 11/22/23 Rx acetaminophen 500 mg tablet 1,000 mg PO Q8 PRN Pain 11/22/23 11/22/23 History (Tylenol Extra Strength) aspirin 81 mg tablet,delayed 81 mg PO DAILY 11/22/23 11/22/23 History release Patient History Medical History (Updated 11/23/23 @ 02:03 by Polina Caballero DO) Miscarriage History of COVID-19 03/2022- cold symptoms, resolved Insulin pump in place History of chicken pox Type 1 diabetes mellitus affecting , antepartum Hypothyroidism Surgical History S/P wisdom tooth extraction Family History Mother Hypertension Hyperlipidemia Type 2 diabetes mellitus Sleep apnea Obesity Hypothyroidism Father Hypertension Hyperlipidemia GERD (gastroesophageal reflux disease) Grandmother (Maternal) Hypothyroidism Heart failure Sister Type 1 diabetes mellitus Samreen's thyroiditis Grandfather (Maternal) Myocardial infarction Cardiac disorder Grandmother (Paternal) Diabetes Cardiac disorder Grandfather (Paternal) Cardiac disorder Myocardial infarction Sister Hypothyroidism Brother Hypertension Son No problems noted. Denies family history of Ovarian cancer Prostate cancer Breast cancer Colorectal cancer Social History (Updated 08/06/23 @ 13:36 by Haydee Lindsay) Smoking Status: Never smoker Second Hand Exposure: No; Do You Dip or Chew Tobacco: No; Hx Alcohol Use: No Hx Substance Use: No Preferred Language: [place] Islander Communication Ability: Effective Visual Impairment: No Limitations Hearing Ability: Hard of Hearing Manager Transfusion Required: No Beliefs That Will Affect Care: None marital status: marital status details: Waldo Weller (32) [phone] Current Living Situation: Spouse Current Living Situation Comment: lives with spouse, son, 3 cats, spouse to change litter 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 Skin: warm, dry, intact HEENT: NC/AT, anicteric sclera, conjunctiva without injection, moist mucus membranes. Heart: +S1/S2, regular, no m/r/g Lungs: equal air entry bilaterally, no rales/rhonchi/wheezes Abd: +BS, soft, NT/ND, gravid uterus. HR 130s Ext: warm, no clubbing/cyanosis or edema Neuro: nonfocal, speech intact, no facial droop, moving all extremities. Results & Data Vital Signs (Past 12 Hours) Vital Signs Pulse Pulse Resp BP BP Pulse Ox Pulse Ox 11/23/23 07:06 89 11/23/23 06:00 85 16 109/76 11/23/23 03:10 98 H 18 111/76 99 11/23/23 03:10 100 11/23/23 02:40 80 20 96 11/23/23 02:30 81 18 96 11/23/23 02:20 86 23 96 11/23/23 02:10 85 17 96 11/23/23 02:00 91 H 15 96 11/23/23 02:00 91 H 18 93/69 L 97 11/23/23 01:50 102 H 19 98 11/23/23 01:40 91 H 15 97 11/23/23 01:31 90 11/23/23 01:30 92 H 17 97 11/23/23 01:20 95 H 21 97 11/23/23 01:10 97 H 21 11/23/23 01:00 91 H 14 103/61 96 11/23/23 01:00 91 H 14 96 11/23/23 00:50 88 19 96 11/23/23 00:40 93 H 23 96 11/23/23 00:30 94 H 23 94 11/23/23 00:20 96 H 26 H 94 11/23/23 00:10 102 H 16 96 11/23/23 00:00 100 H 20 99/63 L 96 11/23/23 00:00 100 H 20 96 11/22/23 23:50 105 H 19 96 11/22/23 23:40 109 H 18 96 11/22/23 23:39 108 H 16 95 11/22/23 23:39 108 H 16 93/69 L 95 11/22/23 23:30 112 H 15 96 11/22/23 23:20 110 H 19 95 11/22/23 23:10 117 H 14 97 11/22/23 23:00 121 H 17 96 11/22/23 22:50 125 H 19 97 11/22/23 22:40 123 H 14 97 11/22/23 22:30 122 H 12 97 11/22/23 22:20 120 H 15 98 11/22/23 22:10 126 H 19 99 11/22/23 22:00 124 H 21 99 11/22/23 21:50 125 H 22 100 11/22/23 21:40 130 H 20 99 11/22/23 21:32 129 H 11/22/23 21:30 132 H 16 99 11/22/23 21:20 120 H 24 100 11/22/23 21:17 116 H 15 100 11/22/23 20:40 116 H 16 99 11/22/23 20:30 113 H 13 100 11/22/23 20:20 119 H 20 100 11/22/23 20:10 104 H 20 99 11/22/23 20:00 112 H 12 100 11/22/23 19:50 112 H 17 100 11/22/23 19:40 109 H 16 100 11/22/23 19:30 107 H 17 99 11/22/23 19:20 110 H 18 100 O2 Del Method O2 Del Method 11/23/23 07:06 11/23/23 06:00 11/23/23 03:10 Room Air 11/23/23 03:10 Room Air 11/23/23 02:40 11/23/23 02:30 11/23/23 02:20 11/23/23 02:10 11/23/23 02:00 11/23/23 02:00 Room Air 11/23/23 01:50 11/23/23 01:40 11/23/23 01:31 11/23/23 01:30 11/23/23 01:20 11/23/23 01:10 11/23/23 01:00 11/23/23 01:00 11/23/23 00:50 11/23/23 00:40 11/23/23 00:30 11/23/23 00:20 11/23/23 00:10 11/23/23 00:00 11/23/23 00:00 11/22/23 23:50 11/22/23 23:40 11/22/23 23:39 11/22/23 23:39 Room Air 11/22/23 23:30 11/22/23 23:20 11/22/23 23:10 11/22/23 23:00 11/22/23 22:50 11/22/23 22:40 11/22/23 22:30 11/22/23 22:20 11/22/23 22:10 11/22/23 22:00 11/22/23 21:50 11/22/23 21:40 11/22/23 21:32 11/22/23 21:30 11/22/23 21:20 11/22/23 21:17 11/22/23 20:40 11/22/23 20:30 11/22/23 20:20 11/22/23 20:10 11/22/23 20:00 11/22/23 19:50 11/22/23 19:40 11/22/23 19:30 11/22/23 19:20 Resident Activity Tracking Resident Involvement: Resident Care Provided Care Provided: Adult Hospital Medicine
[2023-11-23] MEDS: ASPIRIN 81 MG ECTAB PO SCH (08:17)
[2023-11-23] MEDS: PRENATAL VITAMIN 1 TAB PO SCH (08:17)
[2023-11-23 08:59] LABS: Hemoglobin 9.3 g/dl (12.0-16.0); Mean Corpuscular Hemoglobin 28.4 pg (25.0-34.0); Mean Corpuscular Hgb Conc 32.1 g/dL (32.0-36.0); Mean Corpuscular Volume 88.4 fL (80.0-100.0); Mean Platelet Volume 12.5 fL (9.4-12.4); Platelet Count 114 K/uL (130-400); RDW Coefficient of Variation 13.7 % (11.5-14.5); RDW Standard Deviation 44.8 fL (36.4-46.3); Red Blood Count 3.28 M/uL (4.20-5.40); White Blood Count 11.03 K/ul (4.8-10.8)
[2023-11-23] MEDS ORDERED: NON-FORMULARY MEDICATION (Insulin Lispro [Humalog U-100 Insulin] 100 unit/mL solution) continuous subcutaneous infusion SCH (09:00)
[2023-11-23] MEDS: INSULIN, Rapid-Acting PUMP SCH (09:15)
[2023-11-23 09:32] LABS: Anion Gap 5 (3-11); BUN Creatinine Ratio 9.3 (10-20); Blood Urea Nitrogen 4 mg/dl (6-23); Calcium 8.1 mg/dl (8.6-10.3); Carbon Dioxide 23 mmol/L (21-32); Chloride 107 mmol/L (98-107); Creatinine Clr Calc Pharmacy 174.2 ml/min; Est GFR (African American) > 150.0 ml/min; Est GFR (Non-African American) 133.6 ml/min; Glucose 103 mg/dl (70-99(Fasting)); Magnesium 1.6 mg/dl (1.7-2.4); Potassium 3.9 mmol/L (3.5-5.1); Sodium 135 mmol/L (136-145)
--- NOTE | 2023-11-23 10:49 | Electrocardiogram Report ---
Test Reason : Blood Pressure : / mmHG Vent. Rate : 122 BPM Atrial Rate : 122 BPM P-R Int : 132 ms QRS Dur : 078 ms QT Int : 312 ms P-R-T Axes : 067 022 027 degrees QTc Int : 444 ms Sinus tachycardia Inferior infarct , age undetermined Poor R wave progression, consider anterior SD vs. lead placement vs. LVH Abnormal ECG When compared with ECG of 06-JAN-2023 10:58, (unconfirmed) Vent. rate has increased BY 42 BPM Borderline criteria for Anterior infarct are now Present Inferior infarct is now Present Confirmed by Jean Ferrara ([id number]) on 11/23/2023 10:48:38 AM Referred By: Cayla Perry Confirmed By:Jean Ferrara
--- NOTE | 2023-11-23 10:53 | Electrocardiogram Report ---
Test Reason : Blood Pressure : / mmHG Vent. Rate : 117 BPM Atrial Rate : 117 BPM P-R Int : 140 ms QRS Dur : 074 ms QT Int : 300 ms P-R-T Axes : 066 036 008 degrees QTc Int : 418 ms Sinus tachycardia Otherwise Normal ECG When compared with ECG of 22-NOV-2023 17:02, (unconfirmed) Criteria for Inferior infarct are no longer Present Confirmed by Jean Ferrara ([id number]) on 11/23/2023 10:53:24 AM Referred By: Cayla Perry Confirmed By:Jean Ferrara
[2023-11-23] MEDS: ACETAMINOPHEN 1,000 MG/100 ML VIAL IV PRN (12:12)
[2023-11-23] MEDS: MAGNESIUM SULFATE / D5W 1 GM/100 ML BAG IV SCH (12:59)
[2023-11-23] MEDS: ALUMINUM/MAGNESIUM SUSP 30 ML UDC PO PRN (18:39)
--- NOTE | 2023-11-23 19:10 | Hospitalist Progress Note ---
Date of Service November 23, 2023 Assessment & Plan (1) CAP (community acquired pneumonia): Plan: 33 y/o with type-1 DM and 22 week admitted with mild sepsis due to CAP and metapneumovirus Ill one week with cough, improved, then got very sick again last 2 days with productive cough and fever of 102 day of admission RLL opacity on CXR consistent with CAP, WBC 16-->11 overnight and tachycardia improved -continue ceftriaxone and azithromycin -considered discharge today but given type 1 DM and she is higher risk and warrants close monitoring, likely can discharge home tomorrow on oral antibiotics Mild thrombocytopenia - likely related to viral infection, CBC in AM Follow up CXR recommended by radiologist (2) 22 weeks gestation of : Plan: OB consulted and providing monitoring while in hospital (3) Hypomagnesemia: Plan: Replaced 11/21 and replacing with more IV mag today (4) Hypokalemia: Plan: Replaced, normal today (5) Hyponatremia: Plan: 132 related to pneumonia, normalized with IVF (6) Type 1 diabetes mellitus: Plan: BG well controlled using her insulin pump Plan Had burning central SSCP this afternoon felt like heartburn. She has had increased GERD with EKG was done while boarding in ED and was reportedly normal though I cannot see tracing in meditech yet Low risk for cardiac disease, likely GERD or MSK from coughing -trial maalox, continue pepcid Admission and Anticipated Discharge Date Admission Date: November 23, 2023 Results & Data Results & Data Vital Signs (Past 12 Hours) Vital Signs Temp Pulse Pulse Resp BP BP Pulse Ox 11/23/23 18:41 36.8 C 96 H 17 107/72 100 11/23/23 18:23 99 H 11/23/23 16:14 36.7 C 83 20 115/73 96 11/23/23 16:14 11/23/23 16:00 77 20 95 11/23/23 15:30 79 22 96 11/23/23 15:00 89 18 98 11/23/23 15:00 83 11/23/23 14:30 80 21 96 11/23/23 14:00 86 23 11/23/23 13:30 93 H 20 11/23/23 13:00 88 13 11/23/23 12:30 92 H 24 98 11/23/23 12:00 84 19 98 11/23/23 11:30 99 H 21 99 11/23/23 11:30 112/74 11/23/23 11:00 96 H 17 98 11/23/23 10:30 100 H 19 99 11/23/23 10:00 101 H 17 99 11/23/23 09:30 99 H 20 100 11/23/23 09:17 85 16 107/62 96 11/23/23 09:00 105 H 24 98 11/23/23 08:30 94 H 17 97 11/23/23 08:19 95 H 17 97 11/23/23 08:19 107/62 11/23/23 08:00 92 H 19 98 11/23/23 07:30 94 H 18 11/23/23 07:15 90 15 109/76 96 11/23/23 07:06 89 O2 Del Method 11/23/23 18:41 Room Air 11/23/23 18:23 11/23/23 16:14 Room Air 11/23/23 16:14 Room Air 11/23/23 16:00 11/23/23 15:30 11/23/23 15:00 11/23/23 15:00 11/23/23 14:30 11/23/23 14:00 11/23/23 13:30 11/23/23 13:00 11/23/23 12:30 11/23/23 12:00 11/23/23 11:30 11/23/23 11:30 11/23/23 11:00 11/23/23 10:30 11/23/23 10:00 11/23/23 09:30 11/23/23 09:17 Room Air 11/23/23 09:00 11/23/23 08:30 11/23/23 08:19 11/23/23 08:19 11/23/23 08:00 11/23/23 07:30 11/23/23 07:15 Room Air 11/23/23 07:06 Laboratory Results 11/23/23 08:43 11/23/23 08:43 PG Care Time/CCT Total # of Minutes Spent Total Time Spent with Patient: Total time spent is greater than 50% in coordination of care (as documented) at patient's floor/unit and/or counseling patient: Coding Level of Care Code 02190 SUB INP/OBS CARE 2/35MIN Diagnoses CAP (community acquired pneumonia) J18.9 22 weeks gestation of Z3A.22 Hypomagnesemia E83.42 Hypokalemia E87.6 Hyponatremia E87.1 Type 1 diabetes mellitus E10.9
[2023-11-24 07:50] LABS: Hematocrit (blood only) 30.6 % (37.0-47.0); Hemoglobin 9.8 g/dl (12.0-16.0); Mean Corpuscular Hemoglobin 28.7 pg (25.0-34.0); Mean Corpuscular Volume 89.7 fL (80.0-100.0); Mean Platelet Volume 12.4 fL (9.4-12.4); Platelet Count 119 K/uL (130-400); RDW Coefficient of Variation 13.7 % (11.5-14.5); RDW Standard Deviation 45.3 fL (36.4-46.3); Red Blood Count 3.41 M/uL (4.20-5.40); White Blood Count 7.33 K/ul (4.8-10.8)
[2023-11-24 08:06] LABS: Anion Gap 5 (3-11); BUN Creatinine Ratio 16.7 (10-20); Blood Urea Nitrogen 7 mg/dl (6-23); Carbon Dioxide 23 mmol/L (21-32); Chloride 108 mmol/L (98-107); Creatinine Clr Calc Pharmacy 198.4 ml/min; Est GFR (African American) > 150.0 ml/min; Est GFR (Non-African American) 134.7 ml/min; Glucose 119 mg/dl (70-99(Fasting)); Magnesium 1.9 mg/dl (1.7-2.4); Sodium 136 mmol/L (136-145)
[2023-11-24] MEDS: ACETAMINOPHEN 500 MG TAB PO PRN (11:23)
--- NOTE | 2023-11-24 11:51 | Communication Note ---
Date of Service: November 24, 2023 Pt seen by myself on behalf of FILM READER. heart tones by Doppler reassuring. Okay for discharge from OB perspective. Resident Activity Tracking Resident Involvement: Resident Care Provided Care Provided: [facility]
--- NOTE | 2023-11-24 12:42 | Electrocardiogram Report ---
Test Reason : Blood Pressure : / mmHG Vent. Rate : 089 BPM Atrial Rate : 089 BPM P-R Int : 154 ms QRS Dur : 082 ms QT Int : 362 ms P-R-T Axes : 051 031 011 degrees QTc Int : 440 ms Normal sinus rhythm Normal ECG When compared with ECG of 22-NOV-2023 21:11, No significant change was found Confirmed by Jean Ferrara ([id number]) on 11/24/2023 12:42:05 PM Referred By: Cayla Perry Confirmed By:Jean Ferrara
[2023-11-24] MEDS: ALBUTEROL HFA 8 GM INHALER INH SCH (13:27)
--- NOTE | 2023-11-24 15:30 | XRay Report ---
XR chest 2V PA/lateral HISTORY: 33 years-old Female RLL pneumonia; new rales L base acute shortness of breath COMPARISON: 11/22/2023 TECHNIQUE: PA and lateral views of the chest FINDINGS: Cardiomediastinal and hilar silhouettes are within normal limits. No pneumothorax, pleural effusion o r pulmonary edema. Resolution of the previously described right basilar airspace opacities. The bones appear intact. IMPRESSION: Resolution of the previously described right basilar airspace disease. ACT 112: Negative or not required by law. The above report was generated using voice recognition software. It may contain grammatical, syntax o r spelling errors. Electronically signed by: Jatin Aj M.D. 11/24/2023 3:29 PM
--- NOTE | 2023-11-24 16:35 | Discharge Summary ---
Date of Service November 24, 2023 Admission HPI Per Admitting Provider 33 year old female with a past medical history of DM1, hypothyroidism presenting with URI symptoms. Currently 22 weeks , reports no complications with . Has been following regularly with OBGYN for care. Productive cough, yellow sputum x 1 week. Fever started today, up to 102. Denies chest pain, dyspnea. Notes some epigastric pain with coughing. Denies vaginal bleeding, discharge. Notes intermittent nausea/vomiting. No known sick contacts. ED Course Significant for: CXR with right lower lobe opacity concerning for PNA. Leukocytosis; WBC= 15.74. Respiratory biofire; + HMPV S/p 2.5L IVF, 1 dose Augmentin, Famotidine, Zofran in ED Discharge Data Allergies Allergy/AdvReac Type Severity Reaction Status Date / Time nickel Allergy Unknown contact Verified 11/22/23 22:49 dermatitis No Known Drug Allergies Allergy 0 Verified 11/22/23 22:49 Consultations 11/22/23 21:28 ED Decision to Admit Stat 11/23/23 02:11 Consult Obstetrics Routine Hospital Course (1) CAP (community acquired pneumonia): 33 y/o with type-1 DM and 22 week admitted with mild sepsis due to CAP and metapneumovirus Ill one week with cough, improved, then got very sick again last 2 days with productive cough and fever of 102 day of admission RLL opacity on CXR consistent with CAP, WBC 16-->11 overnight and tachycardia improved -continue ceftriaxone and azithromycin -considered discharge today but given type 1 DM and she is higher risk and warrants close monitoring, likely can discharge home tomorrow on oral antibiotics Mild thrombocytopenia - likely related to viral infection, CBC in AM Follow up CXR recommended by radiologist (2) 22 weeks gestation of : OB consulted and providing monitoring while in hospital (3) Hypomagnesemia: Replaced 11/21 and replacing with more IV mag today (4) Hypokalemia: Replaced, normal today (5) Hyponatremia: 132 related to pneumonia, normalized with IVF (6) Type 1 diabetes mellitus: BG well controlled using her insulin pump Plan Had burning central SSCP this afternoon felt like heartburn. She has had increased GERD with EKG was done while boarding in ED and was reportedly normal though I cannot see tracing in [employer] yet Low risk for cardiac disease, likely GERD or MSK from coughing -trial maalox, continue pepcid Discharge Plan Discharge Items Patient Disposition: Home - Self-Care Reason For Visit: Pneumonia Discharge Diagnosis: 1. Probable bacterial pneumonia 2. Human metapneumovirus infection with resulting acute bronchitis 3. Hyponatremia (low sodium) - resolved 4. Hypomagnesemia (low magnesium) - resolved 5. Hypokalemia (low potassium) - resolved 6. Type 1 diabetes on insulin pump 7. Hypothyroidism 8. 22 weeks 9. Anemia - likely combination of , blood draws, acute illness, etc. - recommend recheck within the next week 10. Mildly low platelets - likely due to #1, #2 - recheck needed within the next week Activity: As commented below Activity Comment: Gradually increase your activities over the next 7-10 days as tolerated Exercise/Sports: Wait until after follow-up appointment Non-emergency contact: Primary Care Provider and Station Installer Call non-emergency contact if: you have any medication questions, your symptoms worsen and you have a fever Follow-up/Referrals: [facility] [place] [facility] [Provider Group] - 12/01/23 (keep previously scheduled appointment) Calya Perry MD [Primary Care Provider] - (4-5 days for recheck ) Diet: Carb Count or DM1 Addtl Attending Provider Instructions: Ms Weller, You were hospitalized due to respiratory illness/bronchitis caused by a virus called human metapneumovirus. Your initial chest x-ray of the lungs was concerning for a right lower lobe pneumonia. The pneumonia may have been bacterial in etiology. Treatments included IV antibiotics, albuterol, IV fluids, and supportive care. You were seen by [facility] and they were pleased with how you were doing with your . heart tone measurements were normal. Your oxygen levels remained normal while here. Unfortunately there is no specific antidote for the human metapneumovirus infection. The cough may linger from this viral infection for another 1-2 weeks or longer. You may still be contagious - thus, if you have to leave your home please wear a mask, and if you have visitors to your house please have them mask up. Recommendations - 1. antibiotics - * cefpodoxime - 200mg twice daily x 5 days, first dose tonight upon return home * azithromycin - 250mg once daily x 3 days, first dose today * each antibiotic can cause diarrhea - please try to eat a serving or 2 of yogurt over the next few days 2. for cough - * albuterol via spacer device - 2 puffs every 4 hours as needed for cough, wheezing, or shortness of breath * see handout on spacer device 3. for nasal congestion/sinus congestion - [id number] claritin, zyrtec, or benadryl are acceptable. 4. please use the incentive spirometer device as much as possible over the next few days as you recover from your illness. 5. your hemoglobin is 9.8 today. You have mild anemia. At your next OB appointment please ask them about taking a dedicated iron supplement. 6. your platelet count is mildly low likely due to your illness. The count should return to normal in the next week or so. Please have your family doctor or your OB recheck your CBC blood counts to ensure stability of your hemoglobin and platelet count. It may be a good idea to check a dedicated iron panel as w balaji. 7. focus on good nutrition and hydration during your recovery period; you likely have at least 1 to 2 more weeks of recovery ahead from this illness. Rest when needed; gradually increase activities as tolerated over the next 7-10 days. Follow-up - see separate section Return to [facility] if - * you have recurrent fevers over 100 degrees * you have worsening cough or shortness of breath * you have any chest pains * you develop severe diarrhea * you have uncontrolled blood sugars despite ongoing use of your insulin pump and making necessary adjustments * any other concerns It was our pleasure to care for you! Congratulations on your and please continue to feel better, Nikko Damon Pending Studies at Discharge: No Stand-Alone Forms: My [facility], Smoking Cessation Medications and DC Order Prescriptions: New cefpodoxime 200 mg tablet 200 mg PO BID 5 Days Qty: 10 0RF Rx Instructions: must administer with a meal/food azithromycin [Zithromax] 250 mg tablet 250 mg PO DAILY 3 Days Qty: 3 0RF albuterol sulfate [Ventolin HFA] 90 mcg/actuation HFA aerosol inhaler 2 inh inhalation Q4H PRN (Reason: shortness of breath or wheezing or cough) Qty: 8.5 0RF Continued levothyroxine 200 mcg tablet 200 mcg PO DAILY Qty: 90 1RF (DME) Contour Next Test Strips Strip See Rx Instructions .ROUTE .MEDSUPPLY Qty: 10 Rx Instructions: Test blood sugar once daily PRN prenat.vits,mai,caz-tqhc-wxzwg Tablet 1 tab PO QAM glucagon HCl 1 mg/mL recon soln 1 mg IM UD PRN (Reason: hypoglycemia) Qty: 2 0RF (DME) insulin syringe-needle U-100 [BD Insulin Syringe Ultra-Fine] 0.3 mL 31 gauge x 5/16" syringe See Rx Instructions .Route Qty: 100 0RF Rx Instructions: Use to inject insulin 4x per day in case of pump failure insulin lispro [Humalog U-100 Insulin] 100 unit/mL solution 60 unit continuous subcutaneous infusion DAILY Qty: 60 3RF aspirin [Aspir-Low] 81 mg Tablet,Delayed Release (Dr/Ec) 81 mg PO DAILY acetaminophen [Tylenol Extra Strength] 500 mg Tablet 1,000 mg PO Q8 PRN (Reason: Pain) Discontinued Lantus U-100 Insulin 100 unit/mL solution 30 unit subcut DAILY Qty: 10 0RF Rx Instructions: In case of pump malfunction Discharge Orders: Discharge Order (Routine); Ordered 11/24/23 Ordered By: Nikko Mascorro/Other Patient Handouts: Using an Inhaler with a Spacer Admission Data Admit Date/Time: 11/23/23 02:24 Attending Provider: Nikko Banks Admit Provider: Polina Caballero Primary Care Provider: Cayla Perry Other Providers: Kiki Calvillo; Marlo Mustafa Coding Diagnoses CAP (community acquired pneumonia) J18.9 22 weeks gestation of Z3A.22 Hypomagnesemia E83.42 Hypokalemia E87.6 Hyponatremia E87.1 Type 1 diabetes mellitus E10.9
--- NOTE | 2023-11-27 06:33 | Billing Data ---
Date of Service November 27, 2023 Coding Level of Care Code 02985 INT INP/OBS CARE
== END 2023-11-24 17:30 | disposition home or self-care (01) | DRG 831 ==
LOC: ED 16:39 → EDINP 11-23 02:24 → SUATTDRO 11-23 02:24 → INTOOBSV 11-23 02:24 → 2W 11-23 17:11

== ENCOUNTER 2024-03-17 07:37 | Inpatient (IN) ==
[2024-03-17] MEDS ORDERED: LIDOCAINE 1% LOCAL 20 ML VIAL INFIL PRN (08:51)
[2024-03-17] MEDS ORDERED: OXYTOCIN 30 UNITS/NSS 30 UNITS/500 ML BAG IV PRN (08:51)
[2024-03-17] MEDS: OXYTOCIN 30 UNITS/NSS 30 UNITS/500 ML BAG IV PRN (09:23)
[2024-03-17] MEDS: LACTATED RINGER'S 1,000 ML IV PRN (09:25)
--- NOTE | 2024-03-17 09:50 | History & Physical Report ---
Date of Service March 17, 2024 Assessment & Plan (1) Encounter for induction of labor: Plan: - Planned IOL for A1 at 39+1 weeks POG with Type 1 DM with Rh Negative S/P Rhogam received status ( current immunization status pending) - She is already 4 cm with favorable Bishops. Hence inducing with Pitocin as per protocol. - Will keep her Continuous and Greer monitoring and reassess regularly. - Continue Insulin infusion, Check for hypoglycemia features. - EFW around 3 kgs on 02/25/24; rest parameters normal. - Likely moderate( 98K) gestational thrombocytopenia(GT in previous as well). (2) Diabetes mellitus affecting : Plan: -Type 1 DM under insulin infusion since IOL -All her evaluations as per Diabetes Protocol Normal: CVS/ Ophthalmology / Echo/NSTs : No issue - Echo: No issues -Regular Blood sugar monitor q hour. -Monitor for symptoms of hypoglycemia if any. Talked to her, she is aware about s/s of hypoglycemia (3) Thrombocytopenia: Plan: - Today's Platelets count 98k ( 119k-147k throughout ) - Most likely gestational thrombocytopenia; Anesthesia team has been informed. - No bruise or bleeding disorder before. - Will repeat her platelets in post F/U visits. 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 Issues: 1. GBS +ve: Needs PCN during labor. 2. Type 1 Diabetes Mellitus affecting : Under Insulin Infusion 3. Rh negative Mother( O-ve) : Rhogam given 12/31/23; Needs Rhogam after delivery; Antibody -ve until December, Today's report pending 4. Hypothyroid: Samreen's ( TSH :2.2 on 02/05/24) 5. Thrombocytopenia( Platelets: 98K) 6. Anemia(Today'd Hb: 9.6-----11.7 on December) She was admitted for PNA, UTI and Bronchitis at 22 weeks POG. Treated with Augmentin. Vitals: Stable today morning Uterine contractions started after oxytocin; movement present External FHT and external uterine monitors used; category 1 tracing; normal FHT variability Had regular appointments with OB. Allergies Allergy/AdvReac Type Severity Reaction Status Date / Time nickel Allergy Unknown contact Verified 03/16/24 12:58 dermatitis No Known Drug Allergies Allergy 0 Verified 03/16/24 12:58 Home Medications Medication Instructions Recorded Confirmed Type glucagon HCl 1 mg/mL solution for 1 mg IM UD PRN hypoglycemia #2 ea 10/16/21 03/17/24 Rx injection insulin syringe-needle U-100 0.3 #100 ea 04/23/22 03/16/24 Rx mL 31 gauge x 5/16" (BD Insulin Syringe Ultra-Fine) blood sugar diagnostic (Contour #10 ea 08/14/22 03/16/24 History Next Test Strips) prenat.vits,mai,tux-kbjj-wldta 1 tab PO QAM 01/01/23 03/17/24 History acetaminophen 500 mg tablet 1,000 mg PO Q8 PRN Pain 11/22/23 03/17/24 History (Tylenol Extra Strength) aspirin 81 mg tablet,delayed 81 mg PO DAILY 11/22/23 03/17/24 History release Humalog U-100 Insulin 100 unit/mL 100 unit continuous subcutaneous 01/11/24 03/17/24 Rx subcutaneous solution (insulin infusion DAILY #30 mL lispro) famotidine 20 mg tablet (Pepcid) 20 mg PO BID 03/11/24 03/17/24 History enoxaparin 40 mg/0.4 mL 40 mg (0.4 mL) subcut DAILY 6 03/16/24 03/17/24 Rx subcutaneous syringe (Lovenox) weeks #16.8 mL levothyroxine 150 mcg tablet 200 mcg PO DAILY 03/17/24 03/17/24 History Patient History Medical History 22 weeks gestation of Hyponatremia Hypomagnesemia Hypokalemia CAP (community acquired pneumonia) Type 1 diabetes mellitus during 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 Type 1 diabetes mellitus Miscarriage History of COVID-[address] History of chicken pox Type 1 diabetes mellitus affecting , antepartum Hypothyroidism Surgical History S/P wisdom tooth extraction Family History Mother Hypertension Hyperlipidemia Type 2 diabetes mellitus Sleep apnea Obesity Hypothyroidism Father Hypertension Hyperlipidemia GERD (gastroesophageal reflux disease) Grandmother (Maternal) Hypothyroidism Heart failure Sister Type 1 diabetes mellitus Samreen's thyroiditis Grandfather (Maternal) Myocardial infarction Cardiac disorder Grandmother (Paternal) Diabetes Cardiac disorder Grandfather (Paternal) Cardiac disorder Myocardial infarction Sister Hypothyroidism Brother Hypertension Son No problems noted. Denies family history of Ovarian cancer Prostate cancer Breast cancer Colorectal cancer Social History Smoking Status: Never smoker Second Hand Exposure: No; Hx Alcohol Use: No Hx Substance Use: No Preferred Language: Armenian Communication Ability: Effective Visual Impairment: No Limitations Hearing Ability: Use of Hearing Aid Typewriters Functional Tester Required: No Beliefs That Will Affect Care: None marital status: marital status details: Waldo Weller (32) [phone] Current Living Situation: Spouse Current Living Situation Comment: lives with spouse, son, 3 cats, spouse to change litter current occupational status: employed current occupation: pharamacist How many Children do You have: 1 Other Information That Helps Us Care for You: No Feels Safe at Home: Yes Safety Concerns: Feels Safe At This Time Childhood Exposure to Second-Hand Smoke: No Diet: regular caffeine: Yes during the past year weight has: remained stable Dental Care, Regularly: No Physical Activity Frequency: Does not Exercise Seatbelt Use: always Sunscreen Use: Yes Assistive Devices: Glasses OB History A1; Previous NVD, Pushed for A1: Spontaneous Ab at Review of Systems All systems reviewed & are unremarkable except as noted in HPI & below Physical Exam Physical Exam: General: Alert and oriented. No acute distress. CVS: Regular rate and rhythm. No murmurs. Respiratory: CTA bilaterally. No rhonchi, wheezes, or crackles. No increased work of breathing. Abdomen: Gravid Uterus corresponding term size, longitudinal lie, cephalic presentation, Maternal- monitors intact. Pelvic: Dilated 4 cm; Effacement 70; Station -[address] Calvillo. Lower extremities: No LE edema. Results & Data Vital Signs (Past 12 Hours) Vital Signs Temp Pulse Resp BP 03/17/24 09:31 74 03/17/24 09:31 108/73 03/17/24 08:00 36.8 C 82 18 111/58 L 03/17/24 07:48 82 111/58 L Monitoring External Monitor In Place: Category [address]; mild contractions Supervising Physician Co-Signing Physician Notes Resident Physician Supervision Note: I was present with Dr. Gong during the history and exam. I discussed the case with the resident and agree with the findings and plan as documented in the note. Any exceptions or clarifications are listed here: 33yo @ 39 08/09, DM type 1, abnormal panorama, GBS+, Prothrombin gene. Cervix 4/70/-2 .Will start pitocin. Patient and I agreed - she'd prefer to manage her own blood sugars. Penicillin for GBS+. OK for epidural when she desires. Documented By: Kiki Calvillo, Resident Activity Tracking Resident Involvement: Resident Care Provided Care Provided: OB Delivery
[2024-03-17 09:54] LABS: Hemoglobin 9.6 g/dl (12.0-16.0); Mean Corpuscular Hemoglobin 27.6 pg (25.0-34.0); Mean Corpuscular Volume 86.2 fL (80.0-100.0); Mean Platelet Volume 14.6 fL (9.4-12.4); Platelet Count 98 K/uL (130-400); RDW Coefficient of Variation 13.5 % (11.5-14.5); Red Blood Count 3.48 M/uL (4.20-5.40)
[2024-03-17] MEDS: PENICILLIN GK 6 MU in DEXTROSE 5% 250 ML IV STA (10:06)
[2024-03-17] MEDS ORDERED: SODIUM CHLORIDE 0.9% 250 ML IV PRN (10:24)
[2024-03-17 12:46] LABS: Albumin Globulin Ratio 1.1 (0.9-2); Albumin Level 3.2 gm/dl (3.4-5.0); BUN Creatinine Ratio 18.3 (10-20); Bilirubin,Total 0.3 mg/dl (0.2-1.0); Calcium 8.6 mg/dl (8.6-10.3); Est GFR (African American) 138.8 ml/min; Est GFR (Non-African American) 119.8 ml/min; Globulin 2.9 gm/dl (2.5-4.0); Total Protein 6.1 gm/dl (6.0-8.3)
[2024-03-17] MEDS ORDERED: ROPIVACAINE 0.5% PF 5 MG/ML 20 ML VIAL EPI PRN (12:53)
[2024-03-17] MEDS ORDERED: NALBUPHINE HCL 5 MG in SYRINGE 0 ML IV PRN ×3 (12:53→17:19)
[2024-03-17] MEDS ORDERED: NALOXONE HCL 0.4 MG/1 ML VIAL/CARP IV PRN ×3 (12:53→17:19)
[2024-03-17] MEDS ORDERED: fentaNYL citrate PF 100 MCG/2 ML VIAL EPI PRN (12:53)
[2024-03-17] MEDS ORDERED: NALOXONE HCL 1 MG in SODIUM CHLORIDE 0.9% 1,000 ML IV PRN ×3 (12:53→17:19)
[2024-03-17] MEDS ORDERED: diphenhydrAMINE 50 MG/ML VIAL IV PRN ×3 (12:53→17:19)
[2024-03-17] MEDS ORDERED: ePHEDrine sulfate 50 MG/ML AMP IV PRN ×4 (12:53→17:19)
[2024-03-17] MEDS ORDERED: SODIUM CHLORIDE 0.9% PF INJ 10 ML VIAL EPI PRN (12:53)
[2024-03-17] MEDS ORDERED: LIDOCAINE 2% MPF LOCAL 5 ML VIAL EPI PRN (12:53)
[2024-03-17] MEDS ORDERED: BUPIVACAINE 0.25% PF 30 ML VIAL EPI PRN (12:53)
--- NOTE | 2024-03-17 12:53 | Anesthesiology Consultation ---
Date of Service March 17, 2024 Assessment & Plan Chart Review Chart Review: Acceptable Risk for Labor Epidural plt count stable Consults Requested none History Height/Weight Height: 5 ft 6 in Weight: 89.176 kg Allergies Allergy/AdvReac Type Severity Reaction Status Date / Time nickel Allergy Unknown contact Verified 03/16/24 12:58 dermatitis No Known Drug Allergies Allergy 0 Verified 03/16/24 12:58 Medications Home Medications Medication Instructions Recorded Confirmed Last Taken glucagon HCl 1 mg/mL solution for 1 mg IM UD PRN hypoglycemia #2 ea 10/16/21 03/17/24 Unknown injection insulin syringe-needle U-100 0.3 #100 ea 04/23/22 03/16/24 Unknown mL 31 gauge x 5/16" (BD Insulin Syringe Ultra-Fine) blood sugar diagnostic (Contour #10 ea 08/14/22 03/16/24 Unknown Next Test Strips) prenat.vits,mai,vtk-kgux-zlvre 1 tab PO QAM 01/01/23 03/17/24 03/16/24 acetaminophen 500 mg tablet 1,000 mg PO Q8 PRN Pain 11/22/23 03/17/24 Unknown (Tylenol Extra Strength) aspirin 81 mg tablet,delayed 81 mg PO DAILY 11/22/23 03/17/24 03/15/24 21:00 release Humalog U-100 Insulin 100 unit/mL 100 unit continuous subcutaneous 01/11/24 03/17/24 03/17/24 subcutaneous solution (insulin infusion DAILY #30 mL lispro) famotidine 20 mg tablet (Pepcid) 20 mg PO BID 03/11/24 03/17/24 03/17/24 enoxaparin 40 mg/0.4 mL 40 mg (0.4 mL) subcut DAILY 6 03/16/24 03/17/24 Unknown subcutaneous syringe (Lovenox) weeks #16.8 mL levothyroxine 150 mcg tablet 200 mcg PO DAILY 03/17/24 03/17/24 03/17/24 Active Medications Generic Name Dose Route Start Last Admin Trade Name Freq PRN Reason Stop Dose Admin Oxytocin 30 units in 500 mls @ 9 mls/hr 03/17/24 08:51 03/17/24 12:30 Pitocin 30 Units/Nss IV 03/19/24 08:50 0.54 units/hr .Q24H PRN 9 mls/hr Labor Induction/Augmentation Titration Protocol 0.54 UNITS/HR Lactated Ringer's 1,000 mls @ 125 mls/hr 03/17/24 08:51 03/17/24 12:43 Lr IV 03/19/24 08:50 125 mls/hr .Q8H PRN Administration L&D Protocol Protocol Past Medical History Medical History 22 weeks gestation of Hyponatremia Hypomagnesemia Hypokalemia CAP (community acquired pneumonia) Type 1 diabetes mellitus during 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 Type 1 diabetes mellitus Miscarriage History of COVID-[address] History of chicken pox Type 1 diabetes mellitus affecting , antepartum Hypothyroidism Past Family History Family History Mother Hypertension Hyperlipidemia Type 2 diabetes mellitus Sleep apnea Obesity Hypothyroidism Father Hypertension Hyperlipidemia GERD (gastroesophageal reflux disease) Grandmother (Maternal) Hypothyroidism Heart failure Sister Type 1 diabetes mellitus Samreen's thyroiditis Grandfather (Maternal) Myocardial infarction Cardiac disorder Grandmother (Paternal) Diabetes Cardiac disorder Grandfather (Paternal) Cardiac disorder Myocardial infarction Sister Hypothyroidism Brother Hypertension Son No problems noted. Denies family history of Ovarian cancer Prostate cancer Breast cancer Colorectal cancer Past Surgical History Surgical History S/P wisdom tooth extraction Social History Smoking Status: Never smoker Hx Alcohol Use: No Hx Substance Use: No substance use type: does not use Physical Exam Vital Signs Last Vital Signs Temp 36.8 C 03/17/24 12:00 Pulse 71 03/17/24 12:04 Resp 18 03/17/24 12:00 BP 130/82 03/17/24 12:04 Testing Laboratory Results 03/17/24 08:59 03/17/24 09:03
[2024-03-17] MEDS: fentANYL 2 MCG/ML BUPIVacaine 0.125%-NSS 100ML BAG EPI PRN (13:24)
[2024-03-17] MEDS: LIDOCAINE 2%/EPINEPHRINE 1:200,000 20 ML PF EPI STA (13:24)
[2024-03-17] MEDS: PENICILLIN GK 3 MU in DEXTROSE 5% 100 ML IV PRN (13:36)
[2024-03-17] MEDS: BUPIVACAINE 0.25% PF 30 ML VIAL ONE (14:06)
[2024-03-17] MEDS: fentaNYL citrate PF 100 MCG/2 ML VIAL ONE (14:07)
[2024-03-17] MEDS: LIDOCAINE 2%/EPINEPHRINE 1:200,000 20 ML PF ONE (14:07)
[2024-03-17] MEDS: SODIUM CHLORIDE 0.9% PF INJ 10 ML VIAL ONE (14:07)
[2024-03-17] MEDS: fentANYL 2 MCG/ML BUPIVacaine 0.125%-NSS 100ML BAG ONE (14:07)
[2024-03-17] MEDS: ePHEDrine sulfate 50 MG/ML AMP ONE (14:07)
[2024-03-17] MEDS: BUPIVACAINE 0.25% PF 30 ML VIAL EPI STA (14:07)
[2024-03-17] MEDS: SODIUM CHLORIDE 0.9% PF INJ 10 ML VIAL EPI STA (14:08)
[2024-03-17] MEDS: fentaNYL citrate PF 100 MCG/2 ML VIAL EPI STA (14:08)
[2024-03-17] MEDS ORDERED: PROMETHAZINE 6.25 MG/50.25 ML BAG IV PRN (15:23)
[2024-03-17] MEDS ORDERED: LACTATED RINGER'S 500 ML IV PRN ×2 (15:23→17:19)
[2024-03-17] MEDS ORDERED: KETOROLAC 30 MG/ML VIAL IV PRN ×2 (15:23→17:19)
[2024-03-17] MEDS ORDERED: HYDROmorphone INJ 0.5 MG/0.5 ML SYR IV PRN ×2 (15:23→17:19)
[2024-03-17] MEDS ORDERED: MoRPHine SULFATE PF 1 MG/ML 10 ML AMP/VIAL INT SPINAL ONE ×2 (15:23→17:19)
[2024-03-17] MEDS ORDERED: MoRPHine SULFATE 2 MG/ML CARP IV PRN ×2 (15:23→17:19)
[2024-03-17] MEDS ORDERED: ONDANSETRON INJ 2 MG/ML 2 ML VIAL IV PRN ×2 (15:23→17:19)
[2024-03-17] MEDS ORDERED: MEPERIDINE HCL 25 MG/ML CARP/VIAL IV PRN ×2 (15:23→17:19)
[2024-03-17] MEDS ORDERED: NALOXONE HCL 0.08 MG in SYRINGE 1.8 ML IV PRN ×2 (15:23→17:19)
--- NOTE | 2024-03-17 15:23 | Anesthesia Procedure Note ---
Date of Service March 17, 2024 Anesthesia Post Epidural Note Vital Signs Vital Signs: Temp Pulse Resp BP Pulse Ox 36.8 C 70 18 135/82 100 03/17/24 12:00 03/17/24 15:18 03/17/24 12:00 03/17/24 15:18 03/17/24 15:17 Notes Mental Status: alert / awake / arousable Nausea / Vomiting: adequately controlled Pain: adequately controlled Airway Patency, RR, SpO2: stable & adequate BP & HR: stable & adequate Hydration State: stable & adequate Neuraxial Anesthesia: was administered and sensory block is resolving Anesthetic Complications: no major complications apparent and Pt Satisfied with anesthetic care Epidural: Removed without complications and With tip intact
--- NOTE | 2024-03-17 15:23 | Anesthesiology Progress Note ---
Date of Service March 17, 2024 Anesthesia Post Procedure Vital Signs Vital Signs: Temp Pulse Resp BP Pulse Ox 03/17/24 15:18 70 03/17/24 15:18 135/82 03/17/24 15:17 100 03/17/24 15:17 74 03/17/24 15:12 100 03/17/24 15:12 75 03/17/24 15:07 100 03/17/24 15:07 94 H 03/17/24 15:02 100 03/17/24 15:02 96 H 03/17/24 14:57 100 03/17/24 14:57 76 03/17/24 14:52 100 03/17/24 14:52 76 03/17/24 14:47 100 03/17/24 14:47 75 03/17/24 14:47 140/86 03/17/24 14:42 100 03/17/24 14:42 75 03/17/24 14:37 100 03/17/24 14:37 79 03/17/24 14:33 78 03/17/24 14:33 138/80 03/17/24 14:32 100 03/17/24 14:32 80 03/17/24 14:27 100 03/17/24 14:27 73 03/17/24 14:22 100 03/17/24 14:22 73 03/17/24 14:19 73 03/17/24 14:19 123/73 03/17/24 14:17 100 03/17/24 14:17 75 03/17/24 14:12 100 03/17/24 14:12 78 03/17/24 14:07 100 03/17/24 14:07 81 03/17/24 14:02 100 03/17/24 14:02 90 03/17/24 13:59 82 03/17/24 13:59 140/83 03/17/24 13:57 99 03/17/24 13:57 83 03/17/24 13:56 82 03/17/24 13:56 139/79 03/17/24 13:54 79 03/17/24 13:54 146/89 H 03/17/24 13:52 100 03/17/24 13:52 75 03/17/24 13:50 87 03/17/24 13:50 128/67 03/17/24 13:47 100 03/17/24 13:47 93 H 03/17/24 13:47 136/74 03/17/24 13:45 73 03/17/24 13:45 142/76 H 03/17/24 13:42 99 03/17/24 13:42 78 03/17/24 13:41 78 03/17/24 13:41 136/89 03/17/24 13:38 77 03/17/24 13:38 132/77 03/17/24 13:37 99 03/17/24 13:37 77 03/17/24 13:35 78 03/17/24 13:35 139/85 03/17/24 13:32 100 03/17/24 13:32 72 03/17/24 13:32 136/84 03/17/24 13:29 74 03/17/24 13:29 133/87 03/17/24 13:27 100 03/17/24 13:27 80 03/17/24 13:26 70 03/17/24 13:26 126/83 03/17/24 13:23 76 03/17/24 13:23 134/84 03/17/24 13:22 100 03/17/24 13:22 85 03/17/24 13:20 91 H 03/17/24 13:20 126/80 03/17/24 13:17 100 03/17/24 13:17 81 03/17/24 13:13 81 03/17/24 13:13 136/86 03/17/24 13:12 100 03/17/24 13:12 84 03/17/24 12:04 71 03/17/24 12:04 130/82 03/17/24 12:00 18 03/17/24 12:00 36.8 C 18 03/17/24 10:35 76 03/17/24 10:35 125/80 03/17/24 09:31 74 03/17/24 09:31 108/73 03/17/24 08:00 36.8 C 82 18 111/58 L 03/17/24 07:48 82 111/58 L Transfer of Care Handoff Completed per policy Notes Mental Status: alert / awake / arousable Nausea / Vomiting: adequately controlled Pain: adequately controlled Airway Patency, RR, SpO2: stable & adequate BP & HR: stable & adequate Hydration State: stable & adequate Neuraxial Anesthesia: was administered and sensory block is resolving Anesthetic Complications: no major complications apparent and Pt Satisfied with anesthetic care
[2024-03-17] MEDS ORDERED: NO NARCOTICS OR SEDATIVES SCH ×2 (15:30→17:30)
[2024-03-17] MEDS ORDERED: DC INTRASPINAL MORPHINE SCH ×2 (15:30→17:30)
[2024-03-17] MEDS ORDERED: SODIUM CHLORIDE 0.9% 1,000 ML IV SCH ×2 (15:30→17:30)
[2024-03-17] MEDS ORDERED: fentaNYL citrate PF 100 MCG/2 ML VIAL ONE (15:43)
[2024-03-17] MEDS ORDERED: PROPOFOL IV EMULSION 10 MG/ML 20 ML VIAL IV ONE (16:01)
[2024-03-17] MEDS ORDERED: ONDANSETRON INJ 2 MG/ML 2 ML VIAL ONE (16:01)
[2024-03-17] MEDS ORDERED: LIDOCAINE 2% 2 ML VIAL/AMP(20MG/ML) INFIL ONE (16:01)
[2024-03-17] MEDS ORDERED: GLYCOPYRROLATE 0.2 MG/ML VIAL ONE (16:01)
[2024-03-17] MEDS ORDERED: DEXAMETHASONE SOD INJ 4 MG/ML VIAL ONE (16:01)
[2024-03-17] MEDS ORDERED: SUCCINYLCHOLINE CHLORIDE 20 MG/ML 10 ML VIAL IV ONE (16:01)
[2024-03-17] MEDS ORDERED: KETOROLAC 30 MG/ML VIAL ONE (16:07)
[2024-03-17] MEDS ORDERED: MoRPHine SULFATE PF 1 MG/ML 10 ML AMP/VIAL ONE (16:07)
--- NOTE | 2024-03-17 16:24 | Communication Note ---
Date of Service: March 17, 2024 Called by OB floor for acute cord prolapse. OB OR has not been cleaned, so patient transporting to main OR. urgent plans made for general anesthesia. Emergency consent obtained and focused history and physical performed in hallway en route to OR. Plan: General anesthesia with epidural morphine for post op pain ASA Physical Status: ASA 2E
[2024-03-17] MEDS ORDERED: ATROPINE SULFATE 0.1 MG/ML 10ML SYR IV PRN (16:25)
[2024-03-17] MEDS ORDERED: PROMETHAZINE HCL 6.25 MG in SODIUM CHLORIDE 0.9% 50 ML IV PRN (16:25)
--- NOTE | 2024-03-17 16:25 | XRay Report ---
KUB HISTORY: EMERGENCY - NO OPENING COUNT COMPARISON: None. FINDINGS: Multiple lines and monitoring leads are seen overlying the upper to mid abdomen. No radiop aque foreign body seen within the pelvis. No pneumoperitoneum or pneumatosis. IMPRESSION: 1. Multiple lines and monitoring leads overlying the upper to mid abdomen. 2. No radiopaque foreign bodies within the pelvis. ACT 112: Negative or not required by law. Electronically signed by: Sedrick Birch M.D. 03/17/2024 4:23 PM
[2024-03-17] MEDS: ONDANSETRON INJ 2 MG/ML 2 ML VIAL IV PRN (16:57)
--- NOTE | 2024-03-17 17:00 | Operative Report ---
Post Operative Report Pre & Post Diagnosis Operation Date: 03/17/24 15:40 Pre: Umbilical Cord Prolapse Post: Same I identified the patient and participated in the time-out.: Yes Procedure Operation Date: 03/17/24 15:40 Actual Procedures p Primary Low Transverse Section in - Kiki Calvillo DO Surgeon Kiki Calvillo, [employer] Specialist Dr Oconnor Quantitative Blood Loss (QBL) 1000ml Findings Consistent with Post-Op Diagnosis Specimens cord blood, cord gas Drains scanlon clear yellow, placed during the case Anesthesia Type General Complications none Disposition Accompanied Patient To Recovery: Yes Disposition: Recovery Room Indications 33yo @ 39 08/09, IOL for Type 1 diabetes. GBS+, hypothyroidism, CF carrier, Rh negative, Prothrombin gene. Prolapse of umbilical cord. Description of Procedure Patient was undergoing induction of labor with pitocin, Penicillin for GBS. Checked cervix for attempt at AROM, unable to AROM and unable to determine station (high), therefore US machine was brought to the room to determine position. While gathering ultrasound, spontaneous rupture of membranes occurred for clear fluid. Cervix exam performed - and palpable head at this point, however umbilical cord was prolapsed below the head. I elevated head off cervix and counseled the patient on the procedure, verbal consent for section. Traded position with RN - she then elevated head while we prepared to move to OR for STAT . Went to Main OR because L&D OR was still being cleaned. She was taken to the Main operating room, betadine splash, sterile drapes. General anesthesia was administered. Timeout was confirmed. A Pfannenstiel skin incision was made with a scalpel, and carried through to the underlying layer of fascia. Fascia was nicked at midline, and this incision was extended bilaterally. The fascia was elevated off the underlying rectus abdominis muscles, and dissected bluntly. In similar fashion, the inferior aspect of the fascial incision was dissected. The rectus abdominis muscles were , and the peritoneum was entered bluntly digitally. This was extended bilaterally. Bladder was full - a scanlon catheter was placed by OR team during the . Care was taken to make the uterine incision well above the bladder flap. Using a new scalpel, a low transverse uterine incision was created. The baby was found to be in a breech presentation, and therefore delivered with one leg, followed by the other, and then abdomen/torso delivered. Medial sweeps for arms and head delivered. The cord was doubly clamped and cut, and the was handed off to the waiting carpenter helper hardwood flooring. Cord blood was obtained. The placenta was delivered spontaneously intact. The uterus was exteriorized, and cleared of all clots and debris. The hysterotomy incision was reapproximated using 0 Vicryl in a running locked stitch. A second layer of the same suture was used to imbricate the incision. Posterior uterus was evaluated and normal. The uterus was returned to the abdomen, and gutters were cleared of clots and debris. Excellent hemostasis was observed. The fascial incision was reapproximated using 0 Vicryl in a running stitch. The subcutaneous tissue was irrigated, and reapproximated using 2-0 plain gut in a running stitch. The skin was reapproximated using 4-0 Vicryl in a running subcuticular stitch. Steri-Strips and a bandage were applied. The patient tolerated the procedure well, and will be taken to the recovery area in stable and good condition. Antibiotic regimen: Ancef preoperatively, Azithro was ordered - unable to get prior to OR, therefore will give this in PACU. 24h of ancef postoperatively. I attest to the content of the Intraoperative Record and any orders documented therein. Any exceptions are noted below. OB Procedure Charges 41315
[2024-03-17] MEDS: OXYTOCIN 20 UNITS/1002ML LR IV ONE (17:05)
[2024-03-17] MEDS: AZITHROMYCIN 500 MG in DEXTROSE 5% 250 ML IV ONE (17:05)
[2024-03-17] MEDS: fentaNYL citrate PF 100 MCG/2 ML VIAL IV PRN (17:10)
--- NOTE | 2024-03-17 17:24 | Anesthesiology Progress Note ---
Date of Service March 17, 2024 Anesthesia Post Procedure Vital Signs Vital Signs: Temp Pulse Pulse Resp BP BP Pulse Ox 03/17/24 17:20 74 15 153/97 H 96 03/17/24 17:10 80 12 144/61 H 98 03/17/24 17:00 77 15 146/88 H 99 03/17/24 16:50 92 H 13 132/80 98 03/17/24 16:43 36.0 C L 101 H 13 140/92 98 03/17/24 15:34 108 H 03/17/24 15:34 140/72 03/17/24 15:32 100 03/17/24 15:32 89 03/17/24 15:27 100 03/17/24 15:27 84 03/17/24 15:22 100 03/17/24 15:22 75 03/17/24 15:18 70 03/17/24 15:18 135/82 03/17/24 15:17 100 03/17/24 15:17 74 03/17/24 15:12 100 03/17/24 15:12 75 03/17/24 15:07 100 03/17/24 15:07 94 H 03/17/24 15:02 100 03/17/24 15:02 96 H 03/17/24 14:57 100 03/17/24 14:57 76 03/17/24 14:52 100 03/17/24 14:52 76 03/17/24 14:47 100 03/17/24 14:47 75 03/17/24 14:47 140/86 03/17/24 14:42 100 03/17/24 14:42 75 03/17/24 14:37 100 03/17/24 14:37 79 03/17/24 14:33 78 03/17/24 14:33 138/80 03/17/24 14:32 100 03/17/24 14:32 80 03/17/24 14:27 100 03/17/24 14:27 73 03/17/24 14:22 100 03/17/24 14:22 73 03/17/24 14:19 73 03/17/24 14:19 123/73 03/17/24 14:17 100 03/17/24 14:17 75 03/17/24 14:12 100 03/17/24 14:12 78 03/17/24 14:07 100 03/17/24 14:07 81 03/17/24 14:02 100 03/17/24 14:02 90 03/17/24 13:59 82 03/17/24 13:59 140/83 03/17/24 13:57 99 03/17/24 13:57 83 03/17/24 13:56 82 03/17/24 13:56 139/79 03/17/24 13:54 79 03/17/24 13:54 146/89 H 03/17/24 13:52 100 03/17/24 13:52 75 03/17/24 13:50 87 03/17/24 13:50 128/67 03/17/24 13:47 100 03/17/24 13:47 93 H 03/17/24 13:47 136/74 03/17/24 13:45 73 03/17/24 13:45 142/76 H 03/17/24 13:42 99 03/17/24 13:42 78 03/17/24 13:41 78 03/17/24 13:41 136/89 03/17/24 13:38 77 03/17/24 13:38 132/77 03/17/24 13:37 99 03/17/24 13:37 77 03/17/24 13:35 78 03/17/24 13:35 139/85 03/17/24 13:32 100 03/17/24 13:32 72 03/17/24 13:32 136/84 03/17/24 13:29 74 03/17/24 13:29 133/87 03/17/24 13:27 100 03/17/24 13:27 80 03/17/24 13:26 70 03/17/24 13:26 126/83 03/17/24 13:23 76 03/17/24 13:23 134/84 03/17/24 13:22 100 03/17/24 13:22 85 03/17/24 13:20 91 H 03/17/24 13:20 126/80 03/17/24 13:17 100 03/17/24 13:17 81 03/17/24 13:13 81 03/17/24 13:13 136/86 03/17/24 13:12 100 03/17/24 13:12 84 03/17/24 12:04 71 03/17/24 12:04 130/82 03/17/24 12:00 18 03/17/24 12:00 36.8 C 18 03/17/24 10:35 76 03/17/24 10:35 125/80 03/17/24 09:31 74 03/17/24 09:31 108/73 03/17/24 08:00 36.8 C 82 18 111/58 L 03/17/24 07:48 82 111/58 L O2 Del Method 03/17/24 17:20 Room Air 03/17/24 17:10 Room Air 03/17/24 17:00 Room Air 03/17/24 16:50 Room Air 03/17/24 16:43 Room Air 03/17/24 15:34 03/17/24 15:34 03/17/24 15:32 03/17/24 15:32 03/17/24 15:27 03/17/24 15:27 03/17/24 15:22 03/17/24 15:22 03/17/24 15:18 03/17/24 15:18 03/17/24 15:17 03/17/24 15:17 03/17/24 15:12 03/17/24 15:12 03/17/24 15:07 03/17/24 15:07 03/17/24 15:02 03/17/24 15:02 03/17/24 14:57 03/17/24 14:57 03/17/24 14:52 03/17/24 14:52 03/17/24 14:47 03/17/24 14:47 03/17/24 14:47 03/17/24 14:42 03/17/24 14:42 03/17/24 14:37 03/17/24 14:37 03/17/24 14:33 03/17/24 14:33 03/17/24 14:32 03/17/24 14:32 03/17/24 14:27 03/17/24 14:27 03/17/24 14:22 03/17/24 14:22 03/17/24 14:19 03/17/24 14:19 03/17/24 14:17 03/17/24 14:17 03/17/24 14:12 03/17/24 14:12 03/17/24 14:07 03/17/24 14:07 03/17/24 14:02 03/17/24 14:02 03/17/24 13:59 03/17/24 13:59 03/17/24 13:57 03/17/24 13:57 03/17/24 13:56 03/17/24 13:56 03/17/24 13:54 03/17/24 13:54 03/17/24 13:52 03/17/24 13:52 03/17/24 13:50 03/17/24 13:50 03/17/24 13:47 03/17/24 13:47 03/17/24 13:47 03/17/24 13:45 03/17/24 13:45 03/17/24 13:42 03/17/24 13:42 03/17/24 13:41 03/17/24 13:41 03/17/24 13:38 03/17/24 13:38 03/17/24 13:37 03/17/24 13:37 03/17/24 13:35 03/17/24 13:35 03/17/24 13:32 03/17/24 13:32 03/17/24 13:32 03/17/24 13:29 03/17/24 13:29 03/17/24 13:27 03/17/24 13:27 03/17/24 13:26 03/17/24 13:26 03/17/24 13:23 03/17/24 13:23 03/17/24 13:22 03/17/24 13:22 03/17/24 13:20 03/17/24 13:20 03/17/24 13:17 03/17/24 13:17 03/17/24 13:13 03/17/24 13:13 03/17/24 13:12 03/17/24 13:12 03/17/24 12:04 03/17/24 12:04 03/17/24 12:00 03/17/24 12:00 03/17/24 10:35 03/17/24 10:35 03/17/24 09:31 03/17/24 09:31 03/17/24 08:00 03/17/24 07:48 Pain Intensity Abdomen: Pain Intensity: 2 Transfer of Care Handoff Completed per policy Notes Mental Status: alert / awake / arousable Patient Amnestic to Procedure: Yes Nausea / Vomiting: adequately controlled Pain: adequately controlled Airway Patency, RR, SpO2: stable & adequate BP & HR: stable & adequate Hydration State: stable & adequate Anesthetic Complications: no major complications apparent
--- NOTE | 2024-03-17 17:24 | Anesthesia Procedure Note ---
Date of Service March 17, 2024 Anesthesia Post Epidural Note Vital Signs Vital Signs: Temp Pulse Resp BP Pulse Ox O2 Del Method 36.0 C L 74 15 153/97 H 96 Room Air 03/17/24 16:43 03/17/24 17:20 03/17/24 17:20 03/17/24 17:20 03/17/24 17:20 03/17/24 17:20 Pain Intensity Abdomen: Pain Intensity: 2 Notes Mental Status: alert / awake / arousable Nausea / Vomiting: adequately controlled Pain: adequately controlled Airway Patency, RR, SpO2: stable & adequate BP & HR: stable & adequate Hydration State: stable & adequate Neuraxial Anesthesia: was administered and sensory block is resolving Anesthetic Complications: no major complications apparent and Pt Satisfied with anesthetic care Epidural: Removed without complications and With tip intact
[2024-03-17] MEDS: OXYTOCIN 20 UNITS in LACTATED RINGER'S 1,000 ML IV SCH (18:50)
[2024-03-17] MEDS ORDERED: BENZOCAINE 20% SPRY 85 APPLN/85 GM CAN EXT PRN (18:53)
[2024-03-17] MEDS ORDERED: SENNA 8.6 MG TAB PO PRN (18:53)
[2024-03-17] MEDS ORDERED: HYDROCORTISONE ACETATE 25 MG SUPP PR PRN (18:53)
[2024-03-17] MEDS ORDERED: NON-FORMULARY MEDICATION (Insulin Lispro [Humalog U-100 Insulin] 100 unit/mL solution) continuous subcutaneous infusion SCH (18:53)
[2024-03-17] MEDS ORDERED: CALCIUM CARBONATE 500 MG CHEWABLE TAB PO PRN (18:53)
[2024-03-17] MEDS ORDERED: MAGNESIUM HYDROXIDE SUSP 30 ML UDC PO PRN (18:53)
[2024-03-17] MEDS ORDERED: OXYTOCIN 30 UNITS/LR 1,003 ML IV SCH (19:00)
[2024-03-17] MEDS ORDERED: INSULIN ASPART 100 UNITS/ML VIAL SC PRN (19:12)
[2024-03-17] MEDS ORDERED: GLUCAGON FOR INJ 1 MG VIAL SQ PRN (19:12)
[2024-03-17] MEDS ORDERED: CARBOHYDRATES FOR HYPOGLYCEMIA PO PRN (19:12)
[2024-03-17] MEDS ORDERED: GLUCOSE 10 TAB/TUBE PO PRN (19:12)
[2024-03-17] MEDS ORDERED: GLUCOSE 40% GEL 15 GM TUBE PO PRN (19:12)
[2024-03-17] MEDS ORDERED: DEXTROSE 50% 50 ML SYRINGE IV PRN (19:12)
[2024-03-17] MEDS: PROMETHAZINE 6.25 MG/50.25 ML BAG IV PRN (19:14)
[2024-03-17] MEDS ORDERED: INSULIN, Rapid-Acting PUMP SC SCH (19:15)
[2024-03-17] MEDS: ACETAMINOPHEN 325 MG TAB PO SCH (19:46)
[2024-03-17] MEDS: ceFAZolin 1000MG 1,000 MG/7.5 ML SYR IV SCH (19:46)
[2024-03-17] MEDS: IBUPROFEN 600 MG TAB PO SCH (19:46)
[2024-03-17] MEDS: DOCUSATE SODIUM 100 MG CAP PO SCH (21:20)
[2024-03-17] MEDS: SIMETHICONE 80 MG CHEW PO SCH (21:20)
[2024-03-17] MEDS: FAMOTIDINE 20 MG TAB PO SCH (21:59)
[2024-03-18 06:51] LABS: Hematocrit (blood only) 25.1 % (37.0-47.0); Hemoglobin 8.2 g/dl (12.0-16.0); Mean Corpuscular Hemoglobin 27.6 pg (25.0-34.0); Mean Corpuscular Hgb Conc 32.7 g/dL (32.0-36.0); Mean Corpuscular Volume 84.5 fL (80.0-100.0); Platelet Count 114 K/uL (130-400); RDW Coefficient of Variation 13.2 % (11.5-14.5); RDW Standard Deviation 41.1 fL (36.4-46.3); Red Blood Count 2.97 M/uL (4.20-5.40); White Blood Count 19.82 K/ul (4.8-10.8)
--- NOTE | 2024-03-18 07:08 | Obstetrical Progress Note ---
Date of Service <Desiree Gong MD - Last Filed: 03/18/24 07:09> March 18, 2024 Assessment & Plan <Desiree Gong MD - Last Filed: 03/18/24 07:09> (1) delivery delivered: - Continue observation in post unit. - Will reevaluate if she passes urine on self until this afternoon. - Ambulate outside to corridor. - Continue BF - Dressing out today - Plan to DIS tomorrow if everything goes fine - BP was transiently high during labor; settling down. CMP is normal. - Review Blood pressure before discharge. - is Negative blood group as well; hence Rhogam was not given- baby's Blood group pending. - She will receive LMWH in post F/U: will continue for 3 mo as per hemato. <Kiki Calvillo DO - Last Filed: 03/18/24 07:21> (1) delivery delivered: Subjective <Desiree Gong MD - Last Filed: 03/18/24 07:09> Patient is a 33 yo female is POD #1 following delivery at 39 weeks 1 day. She reports feeling well overall this morning. She has mild abdominal cramping and 3/10 pain well managed on analgesics. Voiding issue- she could not pass urine after removal of scanlon, hence needed straight cath at 5:30 this mor vandana. Bladder is not full after this incidence. Tolerating regular meals overnight and able to ambulate some( to bathroom). She has not passed gas and feels bowel movement. Persistent lochia with some improvement this morning. Currently . Review of Systems Denies fever, chills, sweats. Denies SOB, difficulty breathing, chest pain, palpitations, and chest pressure. Denies breast pain. Denies dysuria. Denies headache or changes in vision. Physical Exam <Desiree Gong MD - Last Filed: 03/18/24 07:09> General: Alert and oriented. No acute distress. CV: Regular rate and rhythm. No murmurs. Respiratory: CTA bilaterally. No rhonchi, wheezes, or crackles. No increased work of breathing. Abdomen: Positive bowel sounds. Soft, nontender, and nondistended. Uterus: Fundus firm and palpable suprapubic. Surgical scar clean and healing well. Lower extremities: No LE edema. No deep calf pain. Raymond's negative bilaterally. Results & Data <Desiree Gong MD - Last Filed: 03/18/24 07:09> Vital Signs (Past 12 Hours) Vital Signs Temp Pulse Pulse Resp BP BP Pulse Ox 03/18/24 06:21 17 100 03/18/24 04:48 16 99 03/18/24 03:30 16 99 03/18/24 03:30 119/72 03/18/24 03:15 37 C 61 16 95/58 L 98 03/18/24 03:04 18 97 03/18/24 02:38 18 97 03/18/24 01:00 18 99 03/18/24 00:50 16 98 03/17/24 23:55 37.2 C 65 18 117/71 98 03/17/24 23:33 16 96 03/17/24 22:22 16 97 03/17/24 21:24 18 98 03/17/24 20:35 18 99 03/17/24 20:35 36.8 C 65 18 122/78 99 03/17/24 20:13 98 03/17/24 20:13 68 03/17/24 20:08 98 03/17/24 20:08 76 03/17/24 20:03 98 03/17/24 20:03 75 03/17/24 19:58 98 03/17/24 19:58 75 03/17/24 19:53 98 03/17/24 19:53 80 03/17/24 19:47 97 03/17/24 19:47 103 H 03/17/24 19:42 98 03/17/24 19:42 74 03/17/24 19:37 98 03/17/24 19:37 74 03/17/24 19:32 97 03/17/24 19:32 71 03/17/24 19:27 97 03/17/24 19:27 69 03/17/24 19:22 97 03/17/24 19:22 73 03/17/24 19:17 97 03/17/24 19:17 72 03/17/24 19:12 98 03/17/24 19:12 73 03/17/24 19:07 97 03/17/24 19:07 74 03/17/24 19:02 98 03/17/24 19:02 77 O2 Del Method 03/18/24 06:21 03/18/24 04:48 03/18/24 03:30 03/18/24 03:30 03/18/24 03:15 Room Air 03/18/24 03:04 03/18/24 02:38 03/18/24 01:00 03/18/24 00:50 03/17/24 23:55 Room Air 03/17/24 23:33 03/17/24 22:22 03/17/24 21:24 03/17/24 20:35 03/17/24 20:35 Room Air 03/17/24 20:13 03/17/24 20:13 03/17/24 20:08 03/17/24 20:08 03/17/24 20:03 03/17/24 20:03 03/17/24 19:58 03/17/24 19:58 03/17/24 19:53 03/17/24 19:53 03/17/24 19:47 03/17/24 19:47 03/17/24 19:42 03/17/24 19:42 03/17/24 19:37 03/17/24 19:37 03/17/24 19:32 03/17/24 19:32 03/17/24 19:27 03/17/24 19:27 03/17/24 19:22 03/17/24 19:22 03/17/24 19:17 03/17/24 19:17 03/17/24 19:12 03/17/24 19:12 03/17/24 19:07 03/17/24 19:07 03/17/24 19:02 03/17/24 19:02 Supervising Physician <Kiki Calvillo, DO - Last Filed: 03/18/24 07:21> Co-Signing Physician Notes Resident Physician Supervision Note: I interviewed and examined the patient. Discussed with Dr. Gong and agree with findings and plan as documented in the note. Any exceptions or clarifications are listed here: POD#1 doing well. Needed straight cath to void after scanlon removed per new protocol. Continuing to manage own blood sugars. Will remove bandage at 24h postop. Debriefed events, questions answered. Documented By: Kiki Calvillo, DO
[2024-03-18 07:26] LABS: Basophils # (auto) 0.03 K/uL (0.00-0.20); Basophils % (auto) 0.2 %; Eosinophils # (auto) 0.01 K/uL (0.00-0.50); Eosinophils % (auto) 0.1 %; Immature Granulocytes % (auto) 0.5 %; Lymphocytes # (auto) 1.78 K/uL (1.20-3.40); Monocytes # (auto) 1.39 K/uL (0.11-0.59); Neutrophils # (auto) 16.51 K/uL (1.40-6.50); Neutrophils % (auto) 83.2 %
[2024-03-18] MEDS: PRENATAL VITAMIN 1 TAB PO SCH (08:12)
[2024-03-18] MEDS: FERROUS SULFATE 325 MG TAB PO SCH (08:12)
[2024-03-18] MEDS: ENOXAPARIN INJ 40 MG/0.4 ML SYR SQ SCH (09:15)
[2024-03-18] MEDS: LEVOTHYROXINE SODIUM 200 MCG TABLET PO SCH (09:17)
[2024-03-18] MEDS ORDERED: diphenhydrAMINE Capsule 25 MG CAP PO PRN (11:19)
[2024-03-18] MEDS ORDERED: HYDROmorphone INJ 0.5 MG/0.5 ML SYR IV PRN (11:19)
[2024-03-18] MEDS ORDERED: ONDANSETRON INJ 2 MG/ML 2 ML VIAL IV PRN (11:19)
[2024-03-18] MEDS ORDERED: PROMETHAZINE 12.5 MG/50.5 ML BAG IV PRN (11:19)
[2024-03-18] MEDS ORDERED: diphenhydrAMINE 50 MG/ML VIAL IV PRN (11:19)
[2024-03-18] MEDS ORDERED: LACTATED RINGER'S 1,000 ML IV SCH (11:30)
[2024-03-18] MEDS: DIPHTHER/TETAN/PERTUS Vaccine (Tdap, Adol/Adult) 0.5mL IM ONE (11:39)
[2024-03-18] MEDS: oxyCODONE HCL IR 5 MG TAB (IMMEDIATE RELEASE) PO PRN (12:22)
[2024-03-18] MEDS: bisacodyL 5 MG TABEC PO SCH (20:10)
[2024-03-18 21:48] VITALS: RESP 18
--- NOTE | 2024-03-19 06:50 | Obstetrical Progress Note ---
Date of Service March 19, 2024 Assessment & Plan (1) delivery delivered: 2nd POD foll Em LSCS for Cord Prolapse. Oveall reports well. - Likely muscle spasm in her neck. No redflag signs - Vitals: Stable - She is started with LMWH since yesterday : will continue for 3 mo as per hemato. - Discharge today Subjective Patient is a 33 yo female is POD #2 following delivery at 39 weeks for cord prolapse. She reports feeling well overall this morning. Complains of some neck pain since yesterday, started gradually, feels like muscle stretch, No tingling, non radiating, no headache. Abdomen pain well managed on analgesics. Voiding Normal now Tolerating regular meals overnight and able to ambulate some. She passed gas and has bowel movement. Persistent lochia with some improvement this morning. Currently breast feeding; no issues. Started Heparin from yesterday Review of Systems Denies fever, chills, sweats. Denies SOB, difficulty breathing, chest pain, palpitations, and chest pressure. Denies breast pain. Denies dysuria. Denies headache or changes in vision. Physical Exam General: Alert and oriented. No acute distress. CV: Regular rate and rhythm. No murmurs. Respiratory: CTA bilaterally. No rhonchi, wheezes, or crackles. No increased work of breathing. Abdomen: Positive bowel sounds. Soft, nontender, and nondistended. Uterus: Fundus firm and palpable suprapubic. Surgical scar clean and healing well. Lower extremities: No LE edema. No deep calf pain. Results & Data Vital Signs (Past 12 Hours) Vital Signs Temp Pulse Pulse Resp BP Pulse Ox O2 Del Method 03/19/24 00:15 37.3 C 78 18 106/66 98 Room Air 03/18/24 20:05 37.3 C 82 18 106/66 100 Room Air
[2024-03-19 07:03] LABS: Hematocrit (blood only) 20.7 % (37.0-47.0); Hemoglobin 6.7 g/dl (12.0-16.0)
[2024-03-19] MEDS ORDERED: SODIUM CHLORIDE 0.9% 250 ML IV PRN (09:55)
[2024-03-19] MEDS: diphenhydrAMINE 50 MG/ML VIAL IV STA (11:24)
[2024-03-19 15:44] VITALS: TEMP 99; O2SAT 99
[2024-03-19 15:55] VITALS: BP 126/85; PULSE 74
[2024-03-19] MEDS ORDERED: ACETAMINOPHEN 325 MG TAB PO PRN (16:54)
[2024-03-19] MEDS ORDERED: bisacodyL 10 MG SUPP PR PRN (16:54)
[2024-03-19] MEDS ORDERED: IBUPROFEN 600 MG TAB PO PRN (16:54)
[2024-03-19 17:46] LABS: Hematocrit (blood only) 27.9 % (37.0-47.0); Hemoglobin 9.1 g/dl (12.0-16.0)
--- NOTE | 2024-03-22 15:31 | Discharge Summary ---
Date of Service March 22, 2024 Admission HPI Per Admitting Provider Patient is a 33 yo female A1 currently at 39+1 WGA with an BRET 03/23/24 as determined by 06/17/23 who is here for planned IOL. Issues: 1. GBS +ve: Needs PCN during labor. 2. Type 1 Diabetes Mellitus affecting : Under Insulin Infusion 3. Rh negative Mother( O-ve) : Rhogam given 12/31/23; Needs Rhogam after delivery; Antibody -ve until December, Today's report pending 4. Hypothyroid: Samreen's ( TSH :2.2 on 02/05/24) 5. Thrombocytopenia( Platelets: 98K) 6. Anemia(Today'd Hb: 9.6-----11.7 on December) She was admitted for PNA, UTI and Bronchitis at 22 weeks POG. Treated with Augmentin. Vitals: Stable today morning Uterine contractions started after oxytocin; movement present External FHT and external uterine monitors used; category 1 tracing; normal FHT variability Had regular appointments with OB. Discharge Data Consultations 03/17/24 08:51 Consult Anesthesiology Stat Procedures Performed Operation Date: 03/17/24 15:40 Actual Procedures p Section in LD - Kiki Calvillo DO Hospital Course (1) delivery delivered: - Continue observation in post unit. - Will reevaluate if she passes urine on self until this afternoon. - Ambulate outside to corridor. - Continue BF - Dressing out today - Plan to DIS tomorrow if everything goes fine - BP was transiently high during labor; settling down. CMP is normal. - Review Blood pressure before discharge. - is Negative blood group as well; hence Rhogam was not given- baby's Blood group pending. - She will receive LMWH in post F/U: will continue for 3 mo as per hemato. Supervising Physician Co-Signing Physician Notes Resident Physician Supervision Note: I interviewed and examined the patient. Discussed with Dr. Gong and agree with findings and plan as documented in the note. Any exceptions or clarifications are listed here: POD#1 doing well. Needed straight cath to void after scanlon removed per new protocol. Continuing to manage own blood sugars. Will remove bandage at 24h postop. Debriefed events, questions answered. Documented By: Kiki Calvillo DO Coding Level of Care Code None Diagnoses delivery delivered O82
== END 2024-03-19 18:41 | disposition home or self-care (01) | DRG 787 ==
LOC: 4S1 07:37 → 4E2 20:35